=== PATIENT | male | born 1980 | race Caucasian/White ===

== ENCOUNTER 2019-07-22 23:18 | Inpatient (IN) | payer MEDICAID ==
[~2019-07-22] VITALS: Ht 182.9 cm; Wt 81.5 kg
[2019-07-23] VITALS (19 sets, daily range): BP systolic 89–128; BP diastolic 37–83
--- NOTE | 2019-07-23 00:03 | NUR ---
heparin [place]p running at 900units/hr [place] [facility] [place] tobias
[2019-07-23 00:27] LABS: LYMPHOCYTES # (AUTO) 0.5 X10'3 (1.1-4.8); LYMPHOCYTES % (AUTO) 4.2 % (21-51); RED BLOOD COUNT 4.43 X10'6 (4.70-6.10); RED CELL DISTRIBUTION WIDTH 12.9 % (11.5-14.5); WHITE BLOOD COUNT 11.5 X10'3 (4.5-11.0)
[2019-07-23 00:28] LABS: BASOPHILS % (AUTO) 0.4 % (0-1); EOSINOPHILS % (AUTO) 0.1 % (0-6); HEMATOCRIT 40.8 % (42.0-52.0); HEMOGLOBIN 13.4 g/dl (14.0-17.9); MEAN CORPUSCULAR HEMOGLOBIN 30.3 PG (27.0-31.0); MEAN CORPUSCULAR HGB CONC 32.9 g/dL (33.0-36.5); MEAN CORPUSCULAR VOLUME 92.1 FL (78-98); MEAN PLATELET VOLUME 9.7 FL (7.4-10.4); MONOCYTES # (AUTO) 1.4 X10'3 (0-0.9); MONOCYTES % (AUTO) 12.5 % (2-12); NEUTROPHILS # (AUTO) 9.5 X10'3 (1.8-7.7); NEUTROPHILS % (AUTO) 82.8 % (42-75); PLATELET COUNT 65 X10'3 (140-440)
[2019-07-23 00:42] LABS: PARTIAL THROMBOPLASTIN TIME 55 SECONDS (22-32)
[2019-07-23 00:45] LABS: NEUTROPHILS % (MANUAL) 73 % (42-75); TOTAL CELLS COUNTED 100
[2019-07-23 00:46] LABS: BANDS% (MANUAL) 15 % (0-10); LYMPHOCYTES % (MANUAL) 3 % (21-51); MONOCYTES % (MANUAL) 9 % (2-12); PLATELET ESTIMATE DECREASED
[2019-07-23 00:48] LABS: ALANINE AMINOTRANSFERASE 78 U/L (12-78); ALBUMIN 1.8 G/DL (3.4-5.0); ALBUMIN/GLOBULIN RATIO 0.5 (1.1-1.5); ALKALINE PHOSPHATASE 43 IU/L (46-116); ANION GAP 13 (8-16); ASPARTATE AMINO TRANSFERASE 176 U/L (10-37); BILIRUBIN,TOTAL 0.3 MG/DL (0.1-1.0); BLOOD UREA NITROGEN 49 MG/DL (7-18); BUN/CREATININE RATIO 31.8 (5.4-32.0); CHLORIDE 106 MMOL/L (99-107); CREATININE 1.54 MG/DL (0.60-1.10); GLUCOSE 118 MG/DL (70-104); POTASSIUM 3.2 MMOL/L (3.5-5.1); SODIUM 137 MMOL/L (135-145); TOTAL CARBON DIOXIDE 18.2 MMOL/L (24-32); TOTAL PROTEIN 5.3 G/DL (6.4-8.2); eGFR 51 ML/MIN
[2019-07-23 00:51] LABS: CREATINE KINASE 1391 U/L (39-308)
--- NOTE | 2019-07-23 01:00 | NUR ---
bedside x-ray completed.
--- NOTE | 2019-07-23 01:49 | NUR ---
no change in pts mentation. He is awaiting eval by steward/stewardess at this time.
--- NOTE | 2019-07-23 02:06 | NUR ---
PA at bedside for eval/admission - pt is able to open eyes and follow some commands. He mostly nods head yes or no.
[2019-07-23] MEDS ORDERED: NO HOME MEDS (02:15)
--- NOTE | 2019-07-23 02:30 | NUR ---
PT OK TO HAVE ICE CHIPS PER ANIKA ODONNELL - NO DIFFICULTY SWALLOWING
[2019-07-23] MEDS ORDERED: heparin 25,000 UNIT/250ml bag 250 ML IV SCH (02:59)
[2019-07-23] MEDS ORDERED: magnesium Cl slow-release 64mg tablet PO PRN (03:00)
[2019-07-23] MEDS ORDERED: acetaminophen 650mg rectal suppository RC PRN (03:00)
[2019-07-23] MEDS ORDERED: magnesium 2GM in 50ml NS 50 ML IV PRN (03:00)
[2019-07-23] MEDS ORDERED: acetaminophen 325mg tablet PO PRN ×2 (03:00)
[2019-07-23] MEDS ORDERED: ondansetron/PF 4mg/2ml inj IV PRN (03:00)
[2019-07-23] MEDS ORDERED: heparin 10,000 units/1 ML INJ IV PRN (03:00)
[2019-07-23] MEDS ORDERED: potassium Cl 20 mEq SR tablet PO PRN (03:00)
[2019-07-23] MEDS ORDERED: aztreonam inj. 2,000 MG in dextrose 5%-water 100 ML IV SCH (03:21)
--- NOTE | 2019-07-23 03:29 | NUR ---
PT RESTING COMFORTABLY. WILL CONTINUE TO MONITOR. LIGHTS DIMMED.
--- NOTE | 2019-07-23 03:38 | NUR ---
ok to use PICC per MD Correia
[2019-07-23 03:41] LABS: HEMOGLOBIN A1C 5.4 % (4.5-6.2)
[2019-07-23 03:49] LABS: MAGNESIUM 2.5 MG/DL (1.5-2.4); PHOSPHORUS 3.5 MG/DL (2.3-4.5)
[2019-07-23] MEDS: sodium bicarbonate inj. 75 ML in dextrose 5% water 500ml 500 ML IV SCH ×4 (03:50→20:16)
--- NOTE | 2019-07-23 04:06 | NUR ---
Report from GWENDOLYN Yeung . I had the opportunity to ask questions. [facility].
--- NOTE | 2019-07-23 04:38 | NUR ---
Pt arrived from ER via gurney. Awake & drowsy.O2 @ 2L NC . PICC line to left upper arm.Heparin infusion at 900units. Vancomycin infusing at this time. Valiente cath with clear yellow urine.Pt placed on customer resolution specialist.
[2019-07-23 04:52] LABS: ALANINE AMINOTRANSFERASE 78 U/L (12-78); ALBUMIN 1.8 G/DL (3.4-5.0); ALBUMIN/GLOBULIN RATIO 0.5 (1.1-1.5); ALKALINE PHOSPHATASE 47 IU/L (46-116); ANION GAP 9 (8-16); ASPARTATE AMINO TRANSFERASE 162 U/L (10-37); BILIRUBIN,TOTAL 0.4 MG/DL (0.1-1.0); BLOOD UREA NITROGEN 47 MG/DL (7-18); BUN/CREATININE RATIO 36.2 (5.4-32.0); CALCIUM 7.2 MG/DL (8.5-10.1); CHLORIDE 107 MMOL/L (99-107); GLUCOSE 121 MG/DL (70-104); POTASSIUM 3.7 MMOL/L (3.5-5.1); SODIUM 137 MMOL/L (135-145); TOTAL CARBON DIOXIDE 21.1 MMOL/L (24-32); TOTAL PROTEIN 5.5 G/DL (6.4-8.2); eGFR 62 ML/MIN
[2019-07-23] MEDS: aztreonam inj. 2,000 MG in normal saline 100ml IV soln 100 ML IV SCH ×2 (05:02→11:20)
--- NOTE | 2019-07-23 05:32 | NUR ---
[id number]: Patient arrived transferred from [facility] to bed via slider board. Patient oriented x1 to person only. Patient groggy and short to answer questions, at times just nods his head. 2 RN skin assessment done, bed bath completed. Patient unable to answer questions for admission assessment. Pupils 2mm PERRL. Lung sounds clear and equal bilaterally. Bowel sounds present. Peripheral pulses intact x4. Patient is able to move all extremities. telemetry monitor showing sinus tachycardia. Oxygen via nasal cannula at 2 lpm. Valiente catheter in place with urine output. SCD's in place. PICC line to right upper arm. PIV's to left arm 18 ga. Patient with Sodium Bicarb D5W infusing at 75ml/hr. Heparin drip at 900 u/hr. Vancomycin infusing per ordered rate.
--- NOTE | 2019-07-23 06:24 | NUR ---
Problems reprioritized. Patient report given, questions answered & plan of care reviewed with GWENDOLYN Ontiveros.
[2019-07-23] MEDS ORDERED: pantoprazole 40mg Tablet.DR PO SCH (07:30)
[2019-07-23] MEDS: docusate sod 100mg capsule PO SCH ×2 (07:57→20:00)
[2019-07-23] MEDS: aspirin 81mg tab.chew PO SCH (07:57)
[2019-07-23] MEDS ORDERED: carVEDilol 3.125mg tablet PO SCH (08:35)
[2019-07-23 09:28] LABS: CHOLESTEROL 77 MG/DL (0-200)
[2019-07-23 09:29] LABS: HDL CHOLESTEROL 7 MG/DL (35-60); LDL CHOLESTEROL 27 MG/DL (50-100); TRIGLYCERIDES 156 MG/DL (20-135)
--- NOTE | 2019-07-23 12:29 | NUR ---
Malnutrition consult: Patient presents from [facility] with ALOC, acute renal failure, sepsis, acute OH. Per MD note patient's OH meth associated. No prior weight history. Current BMI is appropriate. Pt has Bilateral generalized non pitting 1+ edema. Mild muscle weakness. Speech is slurred. PO documentation is pending. A/O x 3. Will continue to follow and monitor patient for complete assessment of malnutrition pending PO intake and patient interview. Addendum: 07/23/19 at [address] Amended: Links added.
[2019-07-23] MEDS ORDERED: normal saline 1000ml 1,000 ML IV ONE (12:30)
[2019-07-23] MEDS ORDERED: acetaminophen 325mg tablet PO ONE (12:40)
[2019-07-23 14:07] LABS: CLARITY,URINE CLOUDY (Clear); COLOR,URINE YELLOW (Yellow); GLUCOSE, URINE NEGATIVE (Neg); KETONES,URINE NEGATIVE (Neg); LEUKOCYTE ESTERASE ,URINE NEGATIVE (Neg); NITRITES, URINE NEGATIVE (Neg); OCCULT BLOOD,URINE LARGE (Neg); PH,URINE 5.5 (4.8-8.0); PROTEIN,URINE 30 mg/dl (Neg)
[2019-07-23 14:08] LABS: UA COLLECTION TYPE FOLEY CATH
[2019-07-23] MEDS: ceFAZolin 1GM/D5W- ADD-VANTAGE 50 ML IV SCH ×2 (14:14→22:04)
[2019-07-23 14:19] LABS: BACTERIA,URINE FEW /HPF (Neg); SQUAMOUS EPITHELIAL CELL,UR NONE SEEN /LPF (FEW)
[2019-07-23 14:21] LABS: AMORPHOUS URATES 1+; HYALINE CASTS 0-3 /LPF (NEGATIVE); WBC CLUMPS,URINE FEW /HPF (NEGATIVE)
[2019-07-23] MEDS ORDERED: LIDOcaine 1% (10mg/ml)w/preservative injection 20ml MDV ONE (16:56)
--- NOTE | 2019-07-23 18:25 | NUR ---
Patient in room CICU 2011. I have received report from GWENDOLYN Ontiveros and had the opportunity to ask questions and assume patient care.
--- NOTE | 2019-07-23 18:34 | NUR ---
Pt. troponins increased, had change in mental status (confused and not following commands) as of 1639, prior to grinding and polishing laborer, Dr. Renee notified, no further orders input, no further labs recommended. Judy Harris paged per pt.'s increased 12 hour troponin. Call not returned. Per Dr. Durán, no cardiac surgery for pt. until the pt's infection resolves.
--- NOTE | 2019-07-23 18:54 | NUR ---
Privacy Password set up by daughter Cisco per repeat visitors reporting to be relatives she does not know. Password documented in charts.
[2019-07-23] MEDS: lactobacillus rhamnosus 10,000 MMU CELLS/CAPSULE PO SCH (20:00)
[2019-07-23] MEDS: vancomycin/NS 1 GM ADD-VANTAGE 250 ML IV SCH (20:09)
[2019-07-24] VITALS (25 sets, daily range): BP systolic 81–136; BP diastolic 38–106
--- NOTE | 2019-07-24 00:22 | NUR ---
Spoke with China Whitlock NP RE: patients BP trending down, urine output decreased. HR 130's, RR 33. Patients mucous membranes are dry. After 250 ml fluid challenge. Order for 500 ml fluid bolus.
[2019-07-24] MEDS ORDERED: normal saline 500ml IV soln 500 ML IV ONE ×2 (00:30→02:00)
--- NOTE | 2019-07-24 01:50 | NUR ---
Spoke with Jennifer Whitlock NP re: Patients low MAP of 60 and 57. Order for 500ml normal saline fluid bolus.
[2019-07-24 02:51] LABS: BASOPHILS % (AUTO) 0.2 % (0-1); EOSINOPHILS % (AUTO) 0.1 % (0-6); HEMATOCRIT 34.7 % (42.0-52.0); HEMOGLOBIN 11.8 g/dl (14.0-17.9); LYMPHOCYTES # (AUTO) 0.3 X10'3 (1.1-4.8); LYMPHOCYTES % (AUTO) 4.1 % (21-51); MEAN CORPUSCULAR HEMOGLOBIN 31.2 PG (27.0-31.0); MEAN CORPUSCULAR VOLUME 91.7 FL (78-98); MEAN PLATELET VOLUME 9.9 FL (7.4-10.4); MONOCYTES # (AUTO) 0.9 X10'3 (0-0.9); MONOCYTES % (AUTO) 10.8 % (2-12); NEUTROPHILS # (AUTO) 6.9 X10'3 (1.8-7.7); NEUTROPHILS % (AUTO) 84.8 % (42-75); RED BLOOD COUNT 3.78 X10'6 (4.70-6.10); RED CELL DISTRIBUTION WIDTH 12.9 % (11.5-14.5); WHITE BLOOD COUNT 8.2 X10'3 (4.5-11.0)
[2019-07-24 02:58] LABS: PLATELET COUNT 46 X10'3 (140-440)
--- NOTE | 2019-07-24 03:00 | NUR ---
Spoke with Jennifer Whitlock NP Re: critical Platelet count 46. Orders for: Type and Screen, Repeat Hemogram at 0800.
[2019-07-24 03:08] LABS: ALANINE AMINOTRANSFERASE 56 U/L (12-78); ALBUMIN 1.4 G/DL (3.4-5.0); ALBUMIN/GLOBULIN RATIO 0.4 (1.1-1.5); ALKALINE PHOSPHATASE 44 IU/L (46-116); ANION GAP 8 (8-16); ASPARTATE AMINO TRANSFERASE 111 U/L (10-37); BILIRUBIN,TOTAL 0.4 MG/DL (0.1-1.0); BLOOD UREA NITROGEN 38 MG/DL (7-18); BUN/CREATININE RATIO 27.9 (5.4-32.0); CHLORIDE 108 MMOL/L (99-107); CREATININE 1.36 MG/DL (0.60-1.10); GLUCOSE 116 MG/DL (70-104); MAGNESIUM 2.4 MG/DL (1.5-2.4); PHOSPHORUS 1.3 MG/DL (2.3-4.5); SODIUM 140 MMOL/L (135-145); TOTAL CARBON DIOXIDE 23.7 MMOL/L (24-32); TOTAL PROTEIN 4.7 G/DL (6.4-8.2); eGFR 59 ML/MIN
[2019-07-24 03:17] LABS: PARTIAL THROMBOPLASTIN TIME 35 SECONDS (22-32)
[2019-07-24] MEDS: potassium Cl 20 mEq SR tablet PO PRN ×2 (04:00→09:01)
[2019-07-24] MEDS: sodium bicarbonate inj. 75 ML in dextrose 5% water 500ml 500 ML IV SCH (04:05)
[2019-07-24] MEDS: ceFAZolin 1GM/D5W- ADD-VANTAGE 50 ML IV SCH ×2 (04:58→13:00)
--- NOTE | 2019-07-24 05:00 | NUR ---
[id number]: Spoke with China Whitlock NP re: patients continued low BP. Orders to place patient on CVP monitoring to get a baseline for the patient. Per China Whitlock NP CVP can be disconnected after baseline is obtained if needed. CVP is 10-12. No new orders at this time.
--- NOTE | 2019-07-24 06:15 | NUR ---
Patient in room CICU 2011. I have received report from Heike SNOW and had the opportunity to ask questions and assume patient care.
--- NOTE | 2019-07-24 06:34 | NUR ---
Problems reprioritized. Patient report given, questions answered & plan of care reviewed with GWENDOLYN Michelle.
[2019-07-24] MEDS ORDERED: albumin (Human) 5% 250ml 250 ML IV STA (07:17)
[2019-07-24] MEDS ORDERED: VANCOMYCIN LEVEL IV ONE (07:30)
[2019-07-24] MEDS: lactobacillus rhamnosus 10,000 MMU CELLS/CAPSULE PO SCH ×2 (07:57→20:24)
[2019-07-24] MEDS: docusate sod 100mg capsule PO SCH ×2 (07:57→20:24)
[2019-07-24] MEDS: aspirin 81mg tab.chew PO SCH (07:58)
[2019-07-24] MEDS ORDERED: mupirocin 2% ointment 22GM NS SCH (08:00)
[2019-07-24] MEDS ORDERED: pantoprazole 40 MG vial IV SCH (08:00)
[2019-07-24] MEDS ORDERED: cefazolin/dext.iso 2gm/100ml 100 ML IV ONE ×2 (08:05→11:00)
[2019-07-24 08:13] LABS: HEMATOCRIT 31.7 % (42.0-52.0); HEMOGLOBIN 10.7 g/dl (14.0-17.9); MEAN CORPUSCULAR HEMOGLOBIN 31.3 PG (27.0-31.0); MEAN CORPUSCULAR HGB CONC 33.8 g/dL (33.0-36.5); MEAN CORPUSCULAR VOLUME 92.5 FL (78-98); MEAN PLATELET VOLUME 10.4 FL (7.4-10.4); RED BLOOD COUNT 3.43 X10'6 (4.70-6.10); WHITE BLOOD COUNT 7.5 X10'3 (4.5-11.0)
[2019-07-24] MEDS: vancomycin/NS 1 GM ADD-VANTAGE 250 ML IV SCH (08:14)
[2019-07-24 08:37] LABS: PLATELET COUNT 37 X10'3 (140-440)
[2019-07-24] MEDS ORDERED: potassium Cl 20mEq/100mL bag 100 ML IV PRN (08:45)
[2019-07-24] MEDS: mupirocin 2% nasal ointment 1gm UD NS SCH ×2 (09:01→20:24)
--- NOTE | 2019-07-24 10:58 | NUR ---
Called daughter to inform patient was going to surgery for pericardial window. She requested we call her when he returns from surgery for update.
[2019-07-24] MEDS ORDERED: gabapentin 400mg capsule PO ONE (11:00)
[2019-07-24] MEDS ORDERED: cefazolin/dext.iso 2gm/50ml 50 ML IV ONE (11:00)
--- NOTE | 2019-07-24 11:10 | NUR ---
Patient leaving for CVOR at this time.
[2019-07-24] MEDS ORDERED: BUPIVAcaine/PF 2.5 mg/ml (0.25%) 30ml vial ONE (11:27)
[2019-07-24] MEDS ORDERED: LIDOcaine 1% 30ml preserv. free vial ONE (11:27)
[2019-07-24] MEDS ORDERED: ceFAZolin 1000mg inj ONE (11:35)
[2019-07-24] MEDS ORDERED: NORMAL SALINE IV ONE (11:35)
[2019-07-24] MEDS ORDERED: ketamine 50mg/5ml syringe ONE (11:35)
[2019-07-24] MEDS ORDERED: DESMOPRESSIN IV ONE (11:35)
[2019-07-24] MEDS: normal saline 1000ml 1,000 ML IV SCH (11:40)
[2019-07-24 11:42] LABS: HIV ANTIBODY 1&2 RAPID NON-REACTIVE (Neg)
[2019-07-24] MEDS ORDERED: fentaNYL/PF 50MCG/1 ML 2ML syringe ONE ×2 (11:42→11:59)
[2019-07-24] MEDS ORDERED: HYDROcodone/acetaminophen 10/325mg tab PO PRN ×2 (12:35)
[2019-07-24] MEDS ORDERED: morphine 4 MG/ML inj SYRINge IV PRN ×2 (12:35)
--- NOTE | 2019-07-24 13:15 | NUR ---
Arrived back from OR at this time.
[2019-07-24 13:48] LABS: BASOPHILS % (AUTO) 0.1 % (0-1); EOSINOPHILS % (AUTO) 0.2 % (0-6); HEMATOCRIT 34.6 % (42.0-52.0); HEMOGLOBIN 11.7 g/dl (14.0-17.9); LYMPHOCYTES # (AUTO) 0.4 X10'3 (1.1-4.8); LYMPHOCYTES % (AUTO) 4.3 % (21-51); MEAN CORPUSCULAR HEMOGLOBIN 31.2 PG (27.0-31.0); MEAN CORPUSCULAR HGB CONC 33.8 g/dL (33.0-36.5); MEAN CORPUSCULAR VOLUME 92.3 FL (78-98); MEAN PLATELET VOLUME 10.4 FL (7.4-10.4); MONOCYTES # (AUTO) 1.1 X10'3 (0-0.9); MONOCYTES % (AUTO) 12.1 % (2-12); NEUTROPHILS # (AUTO) 7.7 X10'3 (1.8-7.7); NEUTROPHILS % (AUTO) 83.3 % (42-75); PLATELET COUNT 66 X10'3 (140-440); RED BLOOD COUNT 3.75 X10'6 (4.70-6.10); RED CELL DISTRIBUTION WIDTH 13.5 % (11.5-14.5); WHITE BLOOD COUNT 9.3 X10'3 (4.5-11.0)
[2019-07-24] MEDS ORDERED: NORepinephrine 8mg/ 250ml NS 250 ML IV PRN (13:55)
[2019-07-24] MEDS ORDERED: NORepinephrine 8mg/ 250ml NS 250 ML IV ONE (14:00)
[2019-07-24 14:01] LABS: ALBUMIN 1.6 G/DL (3.4-5.0); ANION GAP 5 (8-16); BLOOD UREA NITROGEN 33 MG/DL (7-18); BUN/CREATININE RATIO 26.6 (5.4-32.0); CALCIUM 7.1 MG/DL (8.5-10.1); CHLORIDE 110 MMOL/L (99-107); CREATININE 1.24 MG/DL (0.60-1.10); GLUCOSE 126 MG/DL (70-104); POTASSIUM 3.8 MMOL/L (3.5-5.1); SODIUM 141 MMOL/L (135-145); TOTAL CARBON DIOXIDE 26.1 MMOL/L (24-32); eGFR 66 ML/MIN
--- NOTE | 2019-07-24 15:20 | NUR ---
Received call from lab re: gram stains from pericardial fluid. Noted mod gram + cocci in clusters.
[2019-07-24] MEDS: cefazolin/dext.iso 2gm/100ml 100 ML IV SCH (15:23)
--- NOTE | 2019-07-24 15:47 | NUR ---
Made Dr. Renee aware of +gram cocci in cluster from pericardial fluid.
--- NOTE | 2019-07-24 16:46 | NUR ---
Noted patient HR elevated into 130's and was shivering, noted sl increase in temp, currently 38.7, SPO2 93%. IVF's running, Levophed running. Called Dr. Renee for ABG orders. Notified RT for order. Waiting on results.
[2019-07-24 17:05] LABS: ABG BASE EXCESS -0.9 mmol/L (-2.0-3.0); ABG HCO3 19.9 mmol/L (22.0-26.0); ABG OXYGEN SATURATION 91.7 % (95-98); ABG PCO2 (T) 25.9 mmHg (35.0-45.0); ABG PO2 (T) 61.8 mmHg (83-108); FCOHb 0.5 % (0.5-1.5); FMetHb 0.2 % (0.3-1.12); FO2Hb 91.1 % (94-100); TOTAL HEMOGLOBIN 13.6 G/dl (14.0-17.9)
--- NOTE | 2019-07-24 18:00 | NUR ---
Cooling blanket placed under patient at this time, temp 39.0. bladder.
--- NOTE | 2019-07-24 18:20 | NUR ---
Problems reprioritized. Patient report given, questions answered & plan of care reviewed with Shonna SNOW.
--- NOTE | 2019-07-24 18:30 | NUR ---
Patient in room CICU 2011. I have received report from GWENDOLYN Michelle and had the opportunity to ask questions and assume patient care. Patient is responsive to painful stimuli at first then responds to verbal. Will open eyes, moves all extremities, but is weak. Patient with Chest tubes x2 patent no air leak. Dressings are clean, dry and intact. Dressing to surgical wound from paricardial window clean, dry and intact. Valiente Temp catheter in place. Patient is currently has cooling blanket under him with ice packs to groin and axilla for treatment of an elevated temperature not responding to Tylenol. Normal saline infusing at a rate of 100ml/hr. Levophed infusing at 10mcg/min. Will continue to monitor.
--- NOTE | 2019-07-24 19:00 | NUR ---
Patients daughter Serenity to visit patient. She is the spokes person for the family. She relates to RN that she has not spoken to her father since she was 14 "because of his poor choices". when she was called that he was in the hospital she re entered his life. While visiting patient awoke and was able to speak some words to his daughter. During her visit a phone call from a "cousin" was received. She spoke with the person and told them that they could call her directly for information. After than she requested that his password be changed to [id number]. Only family members on the list could be given information.
[2019-07-24] MEDS ORDERED: VANCOmycin 1250MG/NS 250ml Bag 250 ML IV SCH (20:00)
[2019-07-24] MEDS ORDERED: naloxone 0.4 mg/ml inj ONE (21:27)
[2019-07-24] MEDS ORDERED: naloxone 0.4 mg/ml inj IV ONE (21:30)
--- NOTE | 2019-07-24 21:33 | NUR ---
Stroke alert paged. Patient unable to move left upper/ lower extremities in response to pain. Left side facial droop noted. Patient with increased labored respirations grunting. Jennifer Whitlock SEEING EYE DOG TRAINER at bedside, battery charger Kim also at bedside. Airway secretions suctioned. Blood glucose 90. Patient's eyes are wide open, not tracking or blinking. Patient unable to answer questions verbally.
[2019-07-24 21:55] LABS: ABG BASE EXCESS -3.4 mmol/L (-2.0-3.0); ABG HCO3 18.8 mmol/L (22.0-26.0); ABG OXYGEN SATURATION 95.1 % (95-98); ABG PCO2 (T) 25.5 mmHg (35.0-45.0); ABG PO2 (T) 66.8 mmHg (83-108); FCOHb 0.5 % (0.5-1.5); FLOW 2 L/min; FMetHb 0.1 % (0.3-1.12); FO2Hb 94.5 % (94-100); PATIENT TEMPERATURE 35.9; RESPIRATORY RATE (OBSERVED) 26 b/min; TOTAL HEMOGLOBIN 14.6 G/dl (14.0-17.9)
[2019-07-24] MEDS ORDERED: midazolam 100mg in NS 100ml 100 ML IV PRN (22:05)
[2019-07-24] MEDS ORDERED: albuterol 2.5 MG/3 ML nebule NEB PRN (22:05)
[2019-07-24] MEDS ORDERED: FENTANYL-0.9 % NACL/PF 100 ML IV PRN (22:05)
--- NOTE | 2019-07-24 22:07 | NUR ---
Patient emergently intubated for unable to protect airway. Dr. Ellis at bedside. See medication orders. Chest X-Ray obtained to confirm placement. OG tube placed. Patient placed on ventilator .
[2019-07-24 22:10] LABS: BASOPHILS % (AUTO) 0.3 % (0-1); EOSINOPHILS # (AUTO) 0.1 X10'3 (0-0.9); EOSINOPHILS % (AUTO) 0.4 % (0-6); HEMOGLOBIN 13.8 g/dl (14.0-17.9); LYMPHOCYTES # (AUTO) 1.1 X10'3 (1.1-4.8); LYMPHOCYTES % (AUTO) 6.6 % (21-51); MEAN CORPUSCULAR HEMOGLOBIN 30.3 PG (27.0-31.0); MEAN CORPUSCULAR HGB CONC 32.8 g/dL (33.0-36.5); MEAN CORPUSCULAR VOLUME 92.2 FL (78-98); MONOCYTES # (AUTO) 1.8 X10'3 (0-0.9); MONOCYTES % (AUTO) 10.8 % (2-12); NEUTROPHILS # (AUTO) 13.3 X10'3 (1.8-7.7); NEUTROPHILS % (AUTO) 81.9 % (42-75); PLATELET COUNT 55 X10'3 (140-440); RED BLOOD COUNT 4.55 X10'6 (4.70-6.10); RED CELL DISTRIBUTION WIDTH 13.3 % (11.5-14.5); WHITE BLOOD COUNT 16.3 X10'3 (4.5-11.0)
[2019-07-24] MEDS ORDERED: normal saline 1000ml 1,000 ML IVB ONE (22:12)
[2019-07-24] MEDS ORDERED: iohexol 350MG/ML 100ml bottle IV ONE (22:15)
[2019-07-24 22:22] LABS: AMMONIA < 10 UMOL/L (11-32)
[2019-07-24 22:25] LABS: ALANINE AMINOTRANSFERASE 55 U/L (12-78); ALBUMIN 1.7 G/DL (3.4-5.0); ALBUMIN/GLOBULIN RATIO 0.5 (1.1-1.5); ALKALINE PHOSPHATASE 63 IU/L (46-116); ANION GAP 7 (8-16); ASPARTATE AMINO TRANSFERASE 121 U/L (10-37); BILIRUBIN,TOTAL 0.5 MG/DL (0.1-1.0); BLOOD UREA NITROGEN 34 MG/DL (7-18); BUN/CREATININE RATIO 27.4 (5.4-32.0); CALCIUM 7.5 MG/DL (8.5-10.1); CHLORIDE 108 MMOL/L (99-107); CREATININE 1.24 MG/DL (0.60-1.10); GLUCOSE 130 MG/DL (70-104); POTASSIUM 3.8 MMOL/L (3.5-5.1); SODIUM 140 MMOL/L (135-145); TOTAL CARBON DIOXIDE 24.8 MMOL/L (24-32); TOTAL PROTEIN 5.3 G/DL (6.4-8.2); eGFR 66 ML/MIN
[2019-07-24] MEDS ORDERED: etomidate 2mg/ml inj. IV ONE (22:25)
[2019-07-24] MEDS ORDERED: succinylcholine 20mg/ml inj IV ONE (22:25)
[2019-07-24 22:29] LABS: MAGNESIUM 2.5 MG/DL (1.5-2.4); PARTIAL THROMBOPLASTIN TIME 36 SECONDS (22-32); PHOSPHORUS 1.9 MG/DL (2.3-4.5)
[2019-07-24 22:31] LABS: TROPONIN I 8.52 NG/ML (0.0-0.05)
--- NOTE | 2019-07-24 22:50 | NUR ---
Patient to CT accompanied by RT and RN
[2019-07-24] MEDS: ipratropium/albuterol 3ml nebule NEB SCH (23:43)
[2019-07-25] VITALS: BP 108/72
--- NOTE | 2019-07-25 | NUR ---
STROKE ALERT Stroke paged at 2132 for a LKN of 2043. Nurse assessed patient at approximately 2109 and found to have difficulty speaking, initially unable to say any words. Grunting respirations. No motor mvmt noted to left side. I assessed patient at approximately 2149 and found him to have no response to pain on the left arm or leg. Withdraws to pain on the right arm and leg, weakly. 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 For these reasons he is not a TPA candidate. He required intubation emergently prior to CT scan, delaying his imaging time. Orders rec'd for stat non-contrast CT head as well as CTA to r/o any LVO. Patient did attempt to verbalize his name prior to intubation. SOC contacted and on stand by for completion of imaging.
[2019-07-25 00:01] LABS: ABG BASE EXCESS -3.6 mmol/L (-2.0-3.0); ABG HCO3 19.2 mmol/L (22.0-26.0); ABG PCO2 (T) 27.4 mmHg (35.0-45.0); ABG PO2 (T) 225.5 mmHg (83-108); ALLEN'S TEST Positive; FCOHb 0.3 % (0.5-1.5); FMetHb 0.2 % (0.3-1.12); FO2Hb 98.5 % (94-100); MINUTE VOLUME 11 L/min; PATIENT TEMPERATURE 35.9; PEEP 5 cm H2O; RESPIRATORY RATE 18 b/min; RESPIRATORY RATE (OBSERVED) 21 b/min; TIDAL VOLUME 425 mL; TOTAL HEMOGLOBIN 13.3 G/dl (14.0-17.9)
--- NOTE | 2019-07-25 00:33 | NUR ---
Case discussed at length with teleneurology and China Whitlock NP. Neurology recommends that consult be requested from neuro intervention to determine candidacy. Appropriate calls placed to [facility]. Daughter updated. Addendum: 07/25/19 at 0146 by Shavonne Dutton RN Nurse practitioner overseeing patient care in contact with transfer center to attempt transfer to a facility capable of CT perfusion or urgent MRI.
[2019-07-25] MEDS: normal saline 1000ml 1,000 ML IV SCH (00:43)
[2019-07-25 01:00] VITALS: BP 99/66
--- NOTE | 2019-07-25 01:50 | NUR ---
Patient back to CT accompanied by RN and RT
[2019-07-25 02:00] VITALS: BP 95/61
[2019-07-25] MEDS: cefazolin/dext.iso 2gm/100ml 100 ML IV SCH (02:17)
[2019-07-25 03:00] VITALS: BP 87/60
[2019-07-25] MEDS ORDERED: lactulose 20gm/30ml cup PO PRN (03:00)
[2019-07-25] MEDS: ipratropium/albuterol 3ml nebule NEB SCH (03:04)
[2019-07-25 03:21] LABS: ABG BASE EXCESS -2.5 mmol/L (-2.0-3.0); ABG HCO3 19.8 mmol/L (22.0-26.0); ABG OXYGEN SATURATION 98.5 % (95-98); ABG PCO2 (T) 27.2 mmHg (35.0-45.0); ABG PH (T) 7.478 (7.350-7.450); ABG PO2 (T) 116.8 mmHg (83-108); ALLEN'S TEST Positive; FCOHb 0.3 % (0.5-1.5); FMetHb 0.2 % (0.3-1.12); MINUTE VOLUME 12 L/min; PATIENT TEMPERATURE 36.6; PEEP 5 cm H2O; RESPIRATORY RATE 18 b/min; RESPIRATORY RATE (OBSERVED) 26 b/min; TIDAL VOLUME 425 mL; TOTAL HEMOGLOBIN 13.3 G/dl (14.0-17.9)
[2019-07-25 03:45] LABS: BASOPHILS # (AUTO) 0.1 X10'3 (0-0.2); BASOPHILS % (AUTO) 0.4 % (0-1); EOSINOPHILS % (AUTO) 0.1 % (0-6); HEMATOCRIT 38.1 % (42.0-52.0); HEMOGLOBIN 12.7 g/dl (14.0-17.9); LYMPHOCYTES # (AUTO) 0.9 X10'3 (1.1-4.8); LYMPHOCYTES % (AUTO) 6.4 % (21-51); MEAN CORPUSCULAR HEMOGLOBIN 30.5 PG (27.0-31.0); MEAN CORPUSCULAR HGB CONC 33.3 g/dL (33.0-36.5); MEAN CORPUSCULAR VOLUME 91.5 FL (78-98); MEAN PLATELET VOLUME 9.4 FL (7.4-10.4); MONOCYTES # (AUTO) 1.6 X10'3 (0-0.9); MONOCYTES % (AUTO) 11.1 % (2-12); NEUTROPHILS # (AUTO) 11.9 X10'3 (1.8-7.7); RED BLOOD COUNT 4.16 X10'6 (4.70-6.10); RED CELL DISTRIBUTION WIDTH 13.5 % (11.5-14.5); WHITE BLOOD COUNT 14.5 X10'3 (4.5-11.0)
[2019-07-25 03:50] LABS: PLATELET COUNT 38 X10'3 (140-440)
[2019-07-25 03:51] LABS: PARTIAL THROMBOPLASTIN TIME 38 SECONDS (22-32)
[2019-07-25 04:00] VITALS: BP 92/60
--- NOTE | 2019-07-25 04:00 | NUR ---
Patients daughter Julienne made aware of pending transfer to by November ANSELMO Whitlock while discussing patients change in condition earlier in the shift. Attempted to call her back to complete MRI screening form and to alert her of the confirmed transfer to [facility]. She did not answer her phone at this time, a voicemail was left for a return call.
[2019-07-25 04:01] LABS: ALANINE AMINOTRANSFERASE 45 U/L (12-78); ALBUMIN 1.4 G/DL (3.4-5.0); ALBUMIN/GLOBULIN RATIO 0.4 (1.1-1.5); ALKALINE PHOSPHATASE 49 IU/L (46-116); ANION GAP 10 (8-16); ASPARTATE AMINO TRANSFERASE 95 U/L (10-37); BILIRUBIN,TOTAL 0.4 MG/DL (0.1-1.0); BLOOD UREA NITROGEN 34 MG/DL (7-18); BUN/CREATININE RATIO 32.4 (5.4-32.0); CALCIUM 7.1 MG/DL (8.5-10.1); CHLORIDE 110 MMOL/L (99-107); CREATININE 1.05 MG/DL (0.60-1.10); GLUCOSE 126 MG/DL (70-104); MAGNESIUM 2.4 MG/DL (1.5-2.4); PHOSPHORUS 2.3 MG/DL (2.3-4.5); POTASSIUM 3.2 MMOL/L (3.5-5.1); SODIUM 142 MMOL/L (135-145); TOTAL CARBON DIOXIDE 22.2 MMOL/L (24-32); TOTAL PROTEIN 4.7 G/DL (6.4-8.2); eGFR 80 ML/MIN
--- NOTE | 2019-07-25 04:13 | NUR ---
Report called to GWENDOLYN Soto at [facility] ICU.
--- NOTE | 2019-07-25 04:40 | NUR ---
EMS at bedside to transfer patient to [facility]. Report given to GWENDOLYN Sanchez, she will be transporting with the EMS 5Th Grade Teacher. Patient transferred to [facility] without incident. Airway managed by 5Th Grade Teacher. IV drips managed by RN. All belongings sent with patient.
[2019-07-26] MEDS ORDERED: mineral oil/petrolatum ophthal oint EACHEYE SCH (02:00)
[2019-07-26] MEDS ORDERED: VANCOMYCIN LEVEL IV ONE (07:30)
== END 2019-07-25 04:50 | disposition short-term general hospital (02) | DRG 710 ==
LOC: ER 23:19 → CICU 2S 07-23 04:34 → CMPBEDREQ 07-23 04:47
PROVIDERS: ADMIT Internal Medicine Critical Care Medicine; ATTEND Internal Medicine Critical Care Medicine
PROC: 0W9D3ZZ Drainage of Pericardial Cavity, Percutaneous Approach (ICD-10-PCS; 2019-07-23)
PROC: 0W9D00Z Drainage of Pericardial Cavity with Drainage Device, Open Approach (ICD-10-PCS; 2019-07-24)
PROC: B3281ZZ Computerized Tomography (CT Scan) of Bilateral Internal Carotid Arteries using Low Osmolar Contrast (ICD-10-PCS; 2019-07-24)
PROC: B32G1ZZ Computerized Tomography (CT Scan) of Bilateral Vertebral Arteries using Low Osmolar Contrast (ICD-10-PCS; 2019-07-24)
PROC: 0BH17EZ Insertion of Endotracheal Airway into Trachea, Via Natural or Artificial Opening (ICD-10-PCS; 2019-07-24)
PROC: 5A1935Z Respiratory Ventilation, Less than 24 Consecutive Hours (ICD-10-PCS; 2019-07-24)
PROC: 30233R1 Transfusion of Nonautologous Platelets into Peripheral Vein, Percutaneous Approach (ICD-10-PCS; principal; 2019-07-24 11:12)
DX: A41.89 Other specified sepsis (principal); I31.4 Cardiac tamponade; I21.3 ST elevation (STEMI) myocardial infarction of unspecified site; I33.0 Acute and subacute infective endocarditis; I63.511 Cerebral infarction due to unspecified occlusion or stenosis of right middle cerebral artery; E87.2 Acidosis; D69.59 Other secondary thrombocytopenia; J96.00 Acute respiratory failure, unspecified whether with hypoxia or hypercapnia; R65.21 Severe sepsis with septic shock; N17.9 Acute kidney failure, unspecified; M62.82 Rhabdomyolysis; J45.909 Unspecified asthma, uncomplicated; J93.9 Pneumothorax, unspecified; I31.3 Pericardial effusion (noninflammatory); R47.01 Aphasia; B96.89 Other specified bacterial agents as the cause of diseases classified elsewhere; I42.9 Cardiomyopathy, unspecified; J90 Pleural effusion, not elsewhere classified; F15.90 Other stimulant use, unspecified, uncomplicated; F31.9 Bipolar disorder, unspecified; Z79.899 Other long term (current) drug therapy; Z88.1 Allergy status to other antibiotic agents; Z71.51 Drug abuse counseling and surveillance of drug abuser
CPT/HCPCS: 33010; 36415; 36600; 70450; 70496; 71045; 71250; 80048; 80053; 80061; 80202; 81001; 82140; 82550; 82803; 82948; 83036; 83605; 83735; 83880; 84100; 84145; 84484; 85018; 85025; 85027; 85610; 85730; 86703; 86885; 86900; 86901; 86920; 87040; 87070; 87075; 87077; 87081; 87088; 87102; 87186; 93005; 93306; 93308; 94002; 94003; 94640; 94760; 96365; 96368; 99291; A4618; A4620; A6258; A6449; A7000; A7048; C9113; G0378; J0690; J1644; J2001; J2250; J2270; J2310; J2597; J3010; J3370; J3490; J7030; J7040; J7050; J7060; J7120; P9035; P9045; Q9967

== ENCOUNTER 2019-07-25 09:46 | Inpatient (IN) | payer MEDICAID ==
[~2019-07-25] VITALS: Ht 180.3 cm; Wt 87.8 kg
[2019-07-25] VITALS (11 sets, daily range): BP systolic 86–105; BP diastolic 55–68
[~2019-07-25 09:46] MED LIST: NO HOME MEDS
[2019-07-25] MEDS: NORepinephrine 8mg/ 250ml NS 250 ML IV SCH ×2 (12:00→20:59)
--- NOTE | 2019-07-25 12:00 | NUR ---
RECEIVED THIS PATIENT BACK FROM [facility] VIA EMS AND TWO STAFF RNS ACCOMPANIED PATIENT. PATIENT IS ON THE VENTILATOR AT SETTINGS OF 30%FIO2 , PEEP 8, TV 500, AND RR IS 28. SATS ARE RUNNING 100%. PATIENT IS ON LEVOPHED 12MCG TO SUPPORT CURRENT BP OF 86/56 MAP OF 66. I WAS INFORMED IN REPORT THAT NO MEANINGFUL RESPONSES HAVE BEEN WITNESSED BY STAFF AND PATIENT HAS BEEN NON RESPONSIVE TO STIMULI SINCE ADMISSION HERE TO [facility] ALSO. PATIENT APPEARS TO HAVE PIN POINT PUPILS THAT ARE NON REACTIVE AND DR TAYLOR IS AT THE BEDSIDE AWARE OF THIS. WILL CONTINUE TO MONITOR AND ASSESS THE NEEDS OF THE PATIENT
[2019-07-25] MEDS ORDERED: NORepinephrine 8mg/ 250ml NS 250 ML IV ONE (12:14)
[2019-07-25] MEDS ORDERED: FENTANYL-0.9 % NACL/PF 100 ML IV PRN (12:23)
[2019-07-25] MEDS ORDERED: midazolam 100mg in NS 100ml 100 ML IV PRN (12:23)
[2019-07-25] MEDS ORDERED: ipratropium/albuterol 3ml nebule NEB PRN (12:25)
[2019-07-25] MEDS ORDERED: potassium Cl 20 mEq SR tablet PO PRN ×2 (12:25)
[2019-07-25] MEDS ORDERED: potassium CL 10mEq/100ml bag 100 ML IV PRN (12:25)
[2019-07-25] MEDS ORDERED: midazolam 2 mg/2 ml injection IV ONE (12:25)
[2019-07-25] MEDS ORDERED: ondansetron/PF 4mg/2ml inj IV PRN (12:25)
[2019-07-25] MEDS ORDERED: acetaminophen 325mg tablet PO PRN ×2 (12:25)
[2019-07-25] MEDS ORDERED: fentaNYL/PF 50MCG/1 ML 2ML syringe IV PRN (12:25)
[2019-07-25] MEDS: FENTANYL-0.9 % NACL/PF 100 ML IV PRN (13:06)
[2019-07-25] MEDS: normal saline 1000ml 1,000 ML IV SCH (13:06)
[2019-07-25] MEDS: midazolam 100mg in NS 100ml 100 ML IV PRN (13:07)
--- NOTE | 2019-07-25 15:12 | NUR ---
Tube feeding consult. Patient is intubated and sedated. Returned from [facility] for stroke work up per bedside RN. Found to have stroke per MD note. Pt is s/p subxiphoid pericardial window on 07/24. 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 On pressors as well. MAP is above 60. D/w RN that consult was received for tube feedings, unable to enter recommendations myself d/t a tube feeding order already placed along with a consult however discussed that recommendations were made. See recs below. Recommend: 1. Recommend continuous tube feedings using Vital AF at 70 ml/hr will provide 1680 ml, 2016 cals, 126 g protein, and 1361 ml water. 2. Prealbumin q Monday and 3. daily wts 4. water flush 200 q 4 Addendum: 07/25/19 at [address] Amended: Links added.
[2019-07-25 16:16] LABS: ABG BASE EXCESS -2.5 mmol/L (-2.0-3.0); ABG HCO3 19.9 mmol/L (22.0-26.0); ABG OXYGEN SATURATION 97.6 % (95-98); ABG PCO2 (T) 31.2 mmHg (35.0-45.0); ABG PH (T) 7.433 (7.350-7.450); ABG PO2 (T) 111.4 mmHg (83-108); ALLEN'S TEST Positive; FCOHb 0.3 % (0.5-1.5); FLOW 55 L/min; FMetHb 0.2 % (0.3-1.12); FO2Hb 97.1 % (94-100); MINUTE VOLUME 13 L/min; PATIENT TEMPERATURE 39.2; PEEP 8 cm H2O; RESPIRATORY RATE 12 b/min; RESPIRATORY RATE (OBSERVED) 23 b/min; TIDAL VOLUME 500 mL; TOTAL HEMOGLOBIN 13.5 G/dl (14.0-17.9)
[2019-07-25] MEDS: ipratropium/albuterol 3ml nebule NEB SCH ×3 (16:19→22:33)
--- NOTE | 2019-07-25 16:49 | NUR ---
PATIENTS FEVER ADDRESSED WITH TYLENOL PER MD ORDER, PACKED ALL EXTREMITIES WITH ICE AND COOL WASH CLOTH TO THE FOREHEAD
--- NOTE | 2019-07-25 17:29 | NUR ---
FAN PLACED ON PATIENT
--- NOTE | 2019-07-25 18:27 | NUR ---
Problems reprioritized. Patient report given, questions answered & plan of care reviewed with Nigel SNOW.
--- NOTE | 2019-07-25 18:30 | NUR ---
1825..Patient in room CICU 2010. I have received report from Danial SNOW and had the opportunity to ask questions and assume patient care.
[2019-07-25] MEDS: cefazolin/dext.iso 2gm/100ml 100 ML IV SCH (19:30)
[2019-07-25] MEDS: heparin, porcine 5000 units/ml vial SQ SCH (20:00)
[2019-07-25] MEDS: docusate sodium 100mg/10ml UD cup PO SCH (20:00)
[2019-07-25] MEDS: famotidine/PF 10 mg/ml inj IV SCH (20:52)
[2019-07-25] MEDS ORDERED: sennosides/docusate sodium tablet PO SCH (21:00)
[2019-07-26] VITALS (24 sets, daily range): BP systolic 82–110; BP diastolic 54–73
[2019-07-26] MEDS: cefazolin/dext.iso 2gm/100ml 100 ML IV SCH ×3 (00:45→16:09)
--- NOTE | 2019-07-26 01:40 | NUR ---
1999..Assessment as noted, pt completely nonresponsive. Family at bedside.
--- NOTE | 2019-07-26 01:41 | NUR ---
0000..No changes noted.
[2019-07-26] MEDS: ipratropium/albuterol 3ml nebule NEB SCH ×6 (02:33→22:39)
[2019-07-26 03:08] LABS: BASOPHILS % (AUTO) 0.2 % (0-1); EOSINOPHILS # (AUTO) 0.1 X10'3 (0-0.9); EOSINOPHILS % (AUTO) 0.3 % (0-6); HEMATOCRIT 35.1 % (42.0-52.0); HEMOGLOBIN 11.8 g/dl (14.0-17.9); LYMPHOCYTES # (AUTO) 1.2 X10'3 (1.1-4.8); LYMPHOCYTES % (AUTO) 7.2 % (21-51); MEAN CORPUSCULAR HEMOGLOBIN 30.9 PG (27.0-31.0); MEAN CORPUSCULAR HGB CONC 33.7 g/dL (33.0-36.5); MEAN CORPUSCULAR VOLUME 91.8 FL (78-98); MEAN PLATELET VOLUME 10.3 FL (7.4-10.4); MONOCYTES # (AUTO) 1.9 X10'3 (0-0.9); MONOCYTES % (AUTO) 11.5 % (2-12); NEUTROPHILS # (AUTO) 13.2 X10'3 (1.8-7.7); NEUTROPHILS % (AUTO) 80.8 % (42-75); PLATELET COUNT 71 X10'3 (140-440); RED BLOOD COUNT 3.83 X10'6 (4.70-6.10); RED CELL DISTRIBUTION WIDTH 13.6 % (11.5-14.5); WHITE BLOOD COUNT 16.4 X10'3 (4.5-11.0)
[2019-07-26 03:15] LABS: ALANINE AMINOTRANSFERASE 33 U/L (12-78); ALBUMIN 1.3 G/DL (3.4-5.0); ALBUMIN/GLOBULIN RATIO 0.4 (1.1-1.5); ALKALINE PHOSPHATASE 54 IU/L (46-116); ANION GAP 8 (8-16); ASPARTATE AMINO TRANSFERASE 82 U/L (10-37); BILIRUBIN,TOTAL 0.3 MG/DL (0.1-1.0); BLOOD UREA NITROGEN 33 MG/DL (7-18); BUN/CREATININE RATIO 28.9 (5.4-32.0); CALCIUM 7.3 MG/DL (8.5-10.1); CHLORIDE 112 MMOL/L (99-107); CREATININE 1.14 MG/DL (0.60-1.10); GLUCOSE 123 MG/DL (70-104); MAGNESIUM 2.2 MG/DL (1.5-2.4); PHOSPHORUS 3.3 MG/DL (2.3-4.5); POTASSIUM 3.6 MMOL/L (3.5-5.1); SODIUM 144 MMOL/L (135-145); TOTAL CARBON DIOXIDE 23.9 MMOL/L (24-32); TOTAL PROTEIN 4.9 G/DL (6.4-8.2); eGFR 73 ML/MIN
[2019-07-26 03:50] LABS: ABG HCO3 18.9 mmol/L (22.0-26.0); ABG OXYGEN SATURATION 97.8 % (95-98); ABG PCO2 (T) 26.7 mmHg (35.0-45.0); ABG PH (T) 7.472 (7.350-7.450); ABG PO2 (T) 112.4 mmHg (83-108); ALLEN'S TEST Positive; FCOHb 0.3 % (0.5-1.5); FO2Hb 97.5 % (94-100); MINUTE VOLUME 13 L/min; PATIENT TEMPERATURE 38.1; PEEP 8 cm H2O; RESPIRATORY RATE 12 b/min; RESPIRATORY RATE (OBSERVED) 24 b/min; TIDAL VOLUME 500 mL; TOTAL HEMOGLOBIN 12.6 G/dl (14.0-17.9)
[2019-07-26] MEDS: normal saline 1000ml 1,000 ML IV SCH ×3 (04:59→20:00)
[2019-07-26] MEDS: NORepinephrine 8mg/ 250ml NS 250 ML IV SCH (05:00)
--- NOTE | 2019-07-26 05:23 | NUR ---
0400..No changes noted.
--- NOTE | 2019-07-26 06:15 | NUR ---
0615..Problems reprioritized. Patient report given, questions answered & plan of care reviewed with Danial SNOW.
[2019-07-26] MEDS: heparin, porcine 5000 units/ml vial SQ SCH ×2 (08:00→19:55)
[2019-07-26] MEDS: docusate sodium 100mg/10ml UD cup PO SCH (08:44)
[2019-07-26] MEDS: famotidine/PF 10 mg/ml inj IV SCH ×2 (08:44→19:55)
--- NOTE | 2019-07-26 09:00 | NUR ---
no new changes noted, discussed POC during rounds with Dr. Renee, he is in agreement that a family meeting is in order to discuss what the plan is moving forward. Case management will be contacting the family to set up a meeting.
--- NOTE | 2019-07-26 09:00 | NUR ---
turned with wound care at the bedside, assessed skin, no new breakdown noted
--- NOTE | 2019-07-26 10:30 | NUR ---
versed is off per Dr. Renee
[2019-07-26] MEDS ORDERED: acetaminophen 325mg tablet NG PRN (10:46)
[2019-07-26] MEDS ORDERED: POTASSIUM BICARB 20meq eff tab 20 MEQ TABLET.EFF NG PRN (10:49)
--- NOTE | 2019-07-26 13:09 | NUR ---
Tube feeding consult. Patient is intubated and sedated. Returned from [facility] for stroke work up per bedside RN. Found to have stroke per MD note. Pt is s/p subxiphoid pericardial window on 07/24. 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 On pressors as well. MAP is above 60. See recs below.. Recommend: 1. Recommend continuous tube feedings using Vital AF at 70 ml/hr will provide 1680 ml, 2016 cals, 126 g protein, and 1361 ml water. 2. Prealbumin q Monday and 3. daily wts 4. water flush 200 q 4 Addendum: 07/26/19 at [address] Amended: Links added.
[2019-07-26] MEDS: mineral oil/petrolatum ophthal oint EACHEYE SCH ×4 (13:41→19:55)
[2019-07-26] MEDS: acetaminophen 325mg tablet NG PRN (13:41)
--- NOTE | 2019-07-26 13:57 | NUR ---
no changes or improvements, family at the bedside and they are aware of upcoming family meeting.
--- NOTE | 2019-07-26 13:58 | NUR ---
tylenol given to address fever, fan placed and cool washcloth
--- NOTE | 2019-07-26 15:55 | NUR ---
Problems reprioritized. Patient report given, questions answered & plan of care reviewed with Wendy SNOW.
--- NOTE | 2019-07-26 16:30 | NUR ---
Received report from GWENDOLYN Bautista. Upon assessment, pt withdraws all 4 extremities to to pain and has +cough/gag response.
--- NOTE | 2019-07-26 18:32 | NUR ---
Problems reprioritized. Patient report given, questions answered & plan of care reviewed with GWENDOLYN Perez.
[2019-07-26] MEDS: lactobacillus rhamnosus 10,000 MMU CELLS/CAPSULE NG SCH (19:54)
[2019-07-26] MEDS: docusate sodium 100mg/10ml UD cup NG SCH (19:55)
[2019-07-26] MEDS: sennosides/docusate sodium tablet NG SCH (21:00)
[2019-07-27] VITALS (24 sets, daily range): BP systolic 93–117; BP diastolic 65–83
[2019-07-27] MEDS: cefazolin/dext.iso 2gm/100ml 100 ML IV SCH ×3 (00:14→16:12)
[2019-07-27] MEDS: mineral oil/petrolatum ophthal oint EACHEYE SCH ×8 (02:00→20:01)
[2019-07-27] MEDS: NORepinephrine 8mg/ 250ml NS 250 ML IV SCH (02:34)
[2019-07-27] MEDS: ipratropium/albuterol 3ml nebule NEB SCH ×6 (02:34→22:38)
[2019-07-27 03:47] LABS: ALANINE AMINOTRANSFERASE 24 U/L (12-78); ALBUMIN 1.3 G/DL (3.4-5.0); ALBUMIN/GLOBULIN RATIO 0.3 (1.1-1.5); ALKALINE PHOSPHATASE 63 IU/L (46-116); ANION GAP 8 (8-16); ASPARTATE AMINO TRANSFERASE 52 U/L (10-37); BILIRUBIN,TOTAL 0.3 MG/DL (0.1-1.0); BLOOD UREA NITROGEN 27 MG/DL (7-18); CALCIUM 7.2 MG/DL (8.5-10.1); CHLORIDE 115 MMOL/L (99-107); GLUCOSE 119 MG/DL (70-104); MAGNESIUM 2.1 MG/DL (1.5-2.4); POTASSIUM 3.4 MMOL/L (3.5-5.1); SODIUM 146 MMOL/L (135-145); TOTAL CARBON DIOXIDE 23.5 MMOL/L (24-32); TOTAL PROTEIN 5.1 G/DL (6.4-8.2); eGFR > 90 ML/MIN
[2019-07-27 03:50] LABS: BASOPHILS % (AUTO) 0.1 % (0-1); EOSINOPHILS # (AUTO) 0.1 X10'3 (0-0.9); EOSINOPHILS % (AUTO) 0.5 % (0-6); HEMATOCRIT 33.9 % (42.0-52.0); HEMOGLOBIN 11.2 g/dl (14.0-17.9); LYMPHOCYTES # (AUTO) 0.9 X10'3 (1.1-4.8); MEAN CORPUSCULAR HEMOGLOBIN 30.5 PG (27.0-31.0); MEAN CORPUSCULAR HGB CONC 32.9 g/dL (33.0-36.5); MEAN CORPUSCULAR VOLUME 92.5 FL (78-98); MEAN PLATELET VOLUME 9.4 FL (7.4-10.4); MONOCYTES # (AUTO) 1.3 X10'3 (0-0.9); MONOCYTES % (AUTO) 8.6 % (2-12); NEUTROPHILS # (AUTO) 12.9 X10'3 (1.8-7.7); NEUTROPHILS % (AUTO) 84.8 % (42-75); PLATELET COUNT 93 X10'3 (140-440); RED BLOOD COUNT 3.67 X10'6 (4.70-6.10); RED CELL DISTRIBUTION WIDTH 13.7 % (11.5-14.5); WHITE BLOOD COUNT 15.2 X10'3 (4.5-11.0)
[2019-07-27] MEDS: POTASSIUM BICARB 20meq eff tab 20 MEQ TABLET.EFF NG PRN (03:50)
[2019-07-27 04:16] LABS: ABG BASE EXCESS -2.9 mmol/L (-2.0-3.0); ABG HCO3 18.9 mmol/L (22.0-26.0); ABG OXYGEN SATURATION 98.1 % (95-98); ABG PCO2 (T) 25.9 mmHg (35.0-45.0); ABG PH (T) 7.484 (7.350-7.450); ABG PO2 (T) 117.6 mmHg (83-108); ALLEN'S TEST Positive; FCOHb 0.3 % (0.5-1.5); FO2Hb 97.8 % (94-100); MINUTE VOLUME 14 L/min; PATIENT TEMPERATURE 37.8; PEEP 8 cm H2O; RESPIRATORY RATE 12 b/min; RESPIRATORY RATE (OBSERVED) 24 b/min; TIDAL VOLUME 500 mL; TOTAL HEMOGLOBIN 12.1 G/dl (14.0-17.9)
--- NOTE | 2019-07-27 06:34 | NUR ---
Patient in room CICU 2010. I have received report from GWENDOLYN Perez and had the opportunity to ask questions and assume patient care.
[2019-07-27] MEDS: docusate sodium 100mg/10ml UD cup NG SCH ×2 (07:14→20:00)
[2019-07-27] MEDS: lactobacillus rhamnosus 10,000 MMU CELLS/CAPSULE NG SCH ×2 (07:14→20:00)
[2019-07-27] MEDS: famotidine/PF 10 mg/ml inj IV SCH ×2 (07:14→20:00)
[2019-07-27] MEDS: heparin, porcine 5000 units/ml vial SQ SCH ×2 (07:14→20:01)
[2019-07-27] MEDS: FENTANYL-0.9 % NACL/PF 100 ML IV PRN (12:52)
[2019-07-27] MEDS: acetaminophen 325mg tablet NG PRN ×2 (13:08→21:16)
[2019-07-27] MEDS: normal saline 1000ml 1,000 ML IV SCH ×2 (17:27→22:28)
--- NOTE | 2019-07-27 18:42 | NUR ---
Patient in room CICU 2010. I have received report from Wendy SNOW and had the opportunity to ask questions and assume patient care. Patient in bed, intubated and sedated. Patient saturating at 100% on 30% FIO2 on spontaneous mode, and breathing at 14 breaths/min. HR in 120s in sinus tachycardia, BP 102/74 on 3mcg/kg/min of levophed. Patient minimally responsive to painful stimulus, no purposeful eye-opening. Will continue to monitor patient closely.
[2019-07-27] MEDS: sennosides/docusate sodium tablet NG SCH (20:00)
[2019-07-28] VITALS (24 sets, daily range): BP systolic 91–128; BP diastolic 51–89
[2019-07-28] MEDS: cefazolin/dext.iso 2gm/100ml 100 ML IV SCH ×3 (00:27→15:07)
[2019-07-28] MEDS: mineral oil/petrolatum ophthal oint EACHEYE SCH ×4 (02:12→20:07)
[2019-07-28] MEDS: ipratropium/albuterol 3ml nebule NEB SCH ×6 (02:43→22:37)
[2019-07-28 03:23] LABS: BASOPHILS % (AUTO) 0.2 % (0-1); EOSINOPHILS # (AUTO) 0.1 X10'3 (0-0.9); EOSINOPHILS % (AUTO) 0.7 % (0-6); HEMATOCRIT 33.7 % (42.0-52.0); LYMPHOCYTES # (AUTO) 0.8 X10'3 (1.1-4.8); LYMPHOCYTES % (AUTO) 6.3 % (21-51); MEAN CORPUSCULAR HEMOGLOBIN 30.5 PG (27.0-31.0); MEAN CORPUSCULAR HGB CONC 32.8 g/dL (33.0-36.5); MEAN CORPUSCULAR VOLUME 92.9 FL (78-98); MEAN PLATELET VOLUME 9.7 FL (7.4-10.4); MONOCYTES # (AUTO) 0.9 X10'3 (0-0.9); MONOCYTES % (AUTO) 7.2 % (2-12); NEUTROPHILS # (AUTO) 11.1 X10'3 (1.8-7.7); NEUTROPHILS % (AUTO) 85.6 % (42-75); PLATELET COUNT 98 X10'3 (140-440); RED BLOOD COUNT 3.62 X10'6 (4.70-6.10); RED CELL DISTRIBUTION WIDTH 13.8 % (11.5-14.5); WHITE BLOOD COUNT 12.9 X10'3 (4.5-11.0)
[2019-07-28] MEDS: acetaminophen 325mg tablet NG PRN ×2 (03:25→12:30)
[2019-07-28 03:33] LABS: ALANINE AMINOTRANSFERASE 22 U/L (12-78); ALBUMIN 1.3 G/DL (3.4-5.0); ALBUMIN/GLOBULIN RATIO 0.3 (1.1-1.5); ALKALINE PHOSPHATASE 91 IU/L (46-116); ANION GAP 9 (8-16); ASPARTATE AMINO TRANSFERASE 49 U/L (10-37); BILIRUBIN,TOTAL 0.2 MG/DL (0.1-1.0); BLOOD UREA NITROGEN 29 MG/DL (7-18); BUN/CREATININE RATIO 32.2 (5.4-32.0); CALCIUM 7.4 MG/DL (8.5-10.1); CHLORIDE 114 MMOL/L (99-107); GLUCOSE 130 MG/DL (70-104); MAGNESIUM 2.1 MG/DL (1.5-2.4); PHOSPHORUS 2.8 MG/DL (2.3-4.5); POTASSIUM 3.3 MMOL/L (3.5-5.1); SODIUM 147 MMOL/L (135-145); TOTAL CARBON DIOXIDE 23.8 MMOL/L (24-32); TOTAL PROTEIN 5.5 G/DL (6.4-8.2); eGFR > 90 ML/MIN
[2019-07-28 04:10] LABS: ABG BASE EXCESS -0.7 mmol/L (-2.0-3.0); ABG HCO3 20.7 mmol/L (22.0-26.0); ABG OXYGEN SATURATION 97.8 % (95-98); ABG PCO2 (T) 26.4 mmHg (35.0-45.0); ABG PH (T) 7.515 (7.350-7.450); ABG PO2 (T) 110.2 mmHg (83-108); ALLEN'S TEST Positive; FCOHb 0.3 % (0.5-1.5); FO2Hb 97.5 % (94-100); MINUTE VOLUME 12 L/min; PATIENT TEMPERATURE 38.1; PEEP 5 cm H2O; RESPIRATORY RATE 0 b/min; RESPIRATORY RATE (OBSERVED) 18 b/min; TIDAL VOLUME 602 mL; TOTAL HEMOGLOBIN 11.9 G/dl (14.0-17.9)
[2019-07-28] MEDS: POTASSIUM BICARB 20meq eff tab 20 MEQ TABLET.EFF NG PRN ×2 (05:52→15:07)
--- NOTE | 2019-07-28 06:30 | NUR ---
Patient in room CICU 2010. I have received report from metal machinist RN and had the opportunity to ask questions and assume patient care.
--- NOTE | 2019-07-28 06:35 | NUR ---
Problems reprioritized. Patient report given, questions answered & plan of care reviewed with Doris SNOW.
[2019-07-28] MEDS: docusate sodium 100mg/10ml UD cup NG SCH ×2 (08:00→20:00)
--- NOTE | 2019-07-28 08:00 | NUR ---
eyes opening to name, turns head slightly to side of being spoken to, blinks and is tracking nurse from one side of bed to other, frowns with stimulus, and attempts to withdraw from mild noxious stimulus, extremely weak, unable to hold arms up or move
[2019-07-28] MEDS: famotidine/PF 10 mg/ml inj IV SCH ×2 (08:32→20:06)
[2019-07-28] MEDS: lactobacillus rhamnosus 10,000 MMU CELLS/CAPSULE NG SCH ×2 (08:32→20:06)
[2019-07-28] MEDS: heparin, porcine 5000 units/ml vial SQ SCH ×2 (08:32→20:06)
--- NOTE | 2019-07-28 11:58 | NUR ---
Víctor trigger: Víctor 12 w/ pericardial window surgical site. Tolerating OGTF at goal. No BM yet receiving senna. Will continue to monitor. Recommend: 1. Recommend continuous tube feedings using Vital AF at 70 ml/hr will provide 1680 ml, 2016 cals, 126 g protein, and 1361 ml water. 2. Prealbumin q Monday and 3. daily wts 4. water flush 200 q 4 5. Upon extubation; advance diet per MD to heart healthy Addendum: 07/28/19 at [address] Amended: Links added.
[2019-07-28] MEDS: normal saline 1000ml 1,000 ML IV SCH (12:37)
--- NOTE | 2019-07-28 15:30 | NUR ---
daughter at bedside, pt has eyes open spontaneously, following commands, blinks eyes when asked to and weak adding machine servicer noted.
[2019-07-28] MEDS ORDERED: normal saline 1000ml 1,000 ML IV ONE (18:25)
--- NOTE | 2019-07-28 18:25 | NUR ---
report to director of diversity and inclusion nurse, during report, pt HR increased to 150 beats/min, temp increased to 38.9, Dr Renee aware and orders implemented.
[2019-07-28] MEDS ORDERED: acetaminophen 1,000mg/100ml IV 100 ML IV ONE (18:30)
--- NOTE | 2019-07-28 18:30 | NUR ---
Patient in room CICU 2010. I have received report from Doris SNOW and had the opportunity to ask questions and assume patient care. Patient with HR in 140s-150s in sinus tachycardia. MD orders implemented. EKG showing acute STEMI with mild elevations in v5 and v6. Showed report to Taye Bergman NP, stating elevations are related to increase in HR and patient's pericardial effusion. New orders received to draw troponin and to repeat EKG in AM.
[2019-07-28] MEDS: FENTANYL-0.9 % NACL/PF 100 ML IV PRN (18:58)
--- NOTE | 2019-07-28 19:57 | NUR ---
Patient's HR now back to baseline of 130s in sinus tachycardia. Temperature now down to 38.8 from 39.4. Respirations at 16 breaths/min, saturation at 98% on 30% FIO2 on spontaneous mode. Will continue to monitor patient.
[2019-07-28 20:09] LABS: ALBUMIN 1.3 G/DL (3.4-5.0); ANION GAP 8 (8-16); BLOOD UREA NITROGEN 26 MG/DL (7-18); BUN/CREATININE RATIO 30.6 (5.4-32.0); CALCIUM 7.3 MG/DL (8.5-10.1); CHLORIDE 114 MMOL/L (99-107); CREATININE 0.85 MG/DL (0.60-1.10); GLUCOSE 117 MG/DL (70-104); MAGNESIUM 1.8 MG/DL (1.5-2.4); POTASSIUM 3.3 MMOL/L (3.5-5.1); SODIUM 145 MMOL/L (135-145); TOTAL CARBON DIOXIDE 23.1 MMOL/L (24-32); eGFR > 90 ML/MIN
[2019-07-28 20:11] LABS: TROPONIN I 3.82 NG/ML (0.0-0.05)
[2019-07-28] MEDS: sennosides/docusate sodium tablet NG SCH (21:00)
[2019-07-29] VITALS (20 sets, daily range): BP systolic 93–116; BP diastolic 59–89
[2019-07-29] MEDS: POTASSIUM BICARB 20meq eff tab 20 MEQ TABLET.EFF NG PRN ×3 (00:02→08:12)
[2019-07-29] MEDS: cefazolin/dext.iso 2gm/100ml 100 ML IV SCH ×4 (00:03→23:28)
[2019-07-29] MEDS: ipratropium/albuterol 3ml nebule NEB SCH ×6 (02:30→22:33)
[2019-07-29] MEDS: mineral oil/petrolatum ophthal oint EACHEYE SCH ×4 (02:42→19:15)
[2019-07-29 02:50] LABS: BASOPHILS % (AUTO) 0.2 % (0-1); EOSINOPHILS # (AUTO) 0.1 X10'3 (0-0.9); EOSINOPHILS % (AUTO) 0.9 % (0-6); HEMATOCRIT 31.1 % (42.0-52.0); HEMOGLOBIN 10.3 g/dl (14.0-17.9); LYMPHOCYTES # (AUTO) 0.9 X10'3 (1.1-4.8); LYMPHOCYTES % (AUTO) 6.5 % (21-51); MEAN CORPUSCULAR HEMOGLOBIN 30.7 PG (27.0-31.0); MEAN CORPUSCULAR VOLUME 93.1 FL (78-98); MEAN PLATELET VOLUME 9.7 FL (7.4-10.4); MONOCYTES # (AUTO) 0.8 X10'3 (0-0.9); MONOCYTES % (AUTO) 5.6 % (2-12); NEUTROPHILS # (AUTO) 12.2 X10'3 (1.8-7.7); NEUTROPHILS % (AUTO) 86.8 % (42-75); PLATELET COUNT 87 X10'3 (140-440); RED BLOOD COUNT 3.35 X10'6 (4.70-6.10); RED CELL DISTRIBUTION WIDTH 13.7 % (11.5-14.5); WHITE BLOOD COUNT 14.1 X10'3 (4.5-11.0)
[2019-07-29 03:05] LABS: ALANINE AMINOTRANSFERASE 22 U/L (12-78); ALBUMIN 1.2 G/DL (3.4-5.0); ALBUMIN/GLOBULIN RATIO 0.3 (1.1-1.5); ALKALINE PHOSPHATASE 83 IU/L (46-116); ANION GAP 9 (8-16); ASPARTATE AMINO TRANSFERASE 47 U/L (10-37); BILIRUBIN,TOTAL 0.2 MG/DL (0.1-1.0); BLOOD UREA NITROGEN 26 MG/DL (7-18); BUN/CREATININE RATIO 36.1 (5.4-32.0); CALCIUM 7.3 MG/DL (8.5-10.1); CHLORIDE 114 MMOL/L (99-107); CREATININE 0.72 MG/DL (0.60-1.10); GLUCOSE 114 MG/DL (70-104); MAGNESIUM 1.9 MG/DL (1.5-2.4); PHOSPHORUS 3.8 MG/DL (2.3-4.5); POTASSIUM 3.5 MMOL/L (3.5-5.1); PREALBUMIN 8.9 MG/DL (19-36); SODIUM 146 MMOL/L (135-145); TOTAL CARBON DIOXIDE 22.9 MMOL/L (24-32); TOTAL PROTEIN 5.4 G/DL (6.4-8.2); eGFR > 90 ML/MIN
[2019-07-29 03:25] LABS: ABG BASE EXCESS -1.2 mmol/L (-2.0-3.0); ABG HCO3 19.3 mmol/L (22.0-26.0); ABG OXYGEN SATURATION 98.3 % (95-98); ABG PCO2 (T) 22.8 mmHg (35.0-45.0); ABG PO2 (T) 123.5 mmHg (83-108); ALLEN'S TEST Positive; FCOHb 0.3 % (0.5-1.5); FMetHb 0.1 % (0.3-1.12); FO2Hb 97.9 % (94-100); MINUTE VOLUME 11 L/min; PATIENT TEMPERATURE 38.1; PEEP 5 cm H2O; RESPIRATORY RATE 0 b/min; RESPIRATORY RATE (OBSERVED) 18 b/min; TIDAL VOLUME 812 mL; TOTAL HEMOGLOBIN 11.5 G/dl (14.0-17.9)
[2019-07-29] MEDS: acetaminophen 325mg tablet NG PRN ×3 (04:28→19:14)
[2019-07-29 05:01] LABS: TROPONIN I 3.65 NG/ML (0.0-0.05)
--- NOTE | 2019-07-29 06:25 | NUR ---
Problems reprioritized. Patient report given, questions answered & plan of care reviewed with Wendy SNOW.
[2019-07-29] MEDS: heparin, porcine 5000 units/ml vial SQ SCH ×2 (08:00→20:00)
[2019-07-29] MEDS: docusate sodium 100mg/10ml UD cup NG SCH ×2 (08:00→20:00)
[2019-07-29] MEDS: lactobacillus rhamnosus 10,000 MMU CELLS/CAPSULE NG SCH ×2 (08:12→19:14)
[2019-07-29] MEDS: famotidine/PF 10 mg/ml inj IV SCH ×2 (08:13→19:14)
[2019-07-29] MEDS: NORepinephrine 8mg/ 250ml NS 250 ML IV SCH (12:00)
[2019-07-29] MEDS: normal saline 1000ml 1,000 ML IV SCH (15:30)
[2019-07-29] MEDS: sennosides/docusate sodium tablet NG SCH (20:55)
[2019-07-30] VITALS (23 sets, daily range): BP systolic 89–129; BP diastolic 52–95
[2019-07-30] MEDS: mineral oil/petrolatum ophthal oint EACHEYE SCH ×4 (02:00→20:08)
[2019-07-30 02:33] LABS: BASOPHILS # (AUTO) 0.1 X10'3 (0-0.2); BASOPHILS % (AUTO) 0.4 % (0-1); EOSINOPHILS # (AUTO) 0.1 X10'3 (0-0.9); EOSINOPHILS % (AUTO) 0.5 % (0-6); HEMATOCRIT 32.4 % (42.0-52.0); HEMOGLOBIN 10.5 g/dl (14.0-17.9); LYMPHOCYTES # (AUTO) 1.2 X10'3 (1.1-4.8); LYMPHOCYTES % (AUTO) 5.8 % (21-51); MEAN CORPUSCULAR HEMOGLOBIN 30.3 PG (27.0-31.0); MEAN CORPUSCULAR HGB CONC 32.4 g/dL (33.0-36.5); MEAN CORPUSCULAR VOLUME 93.7 FL (78-98); MEAN PLATELET VOLUME 9.3 FL (7.4-10.4); MONOCYTES # (AUTO) 0.7 X10'3 (0-0.9); MONOCYTES % (AUTO) 3.5 % (2-12); NEUTROPHILS # (AUTO) 18.6 X10'3 (1.8-7.7); NEUTROPHILS % (AUTO) 89.8 % (42-75); PLATELET COUNT 116 X10'3 (140-440); RED BLOOD COUNT 3.46 X10'6 (4.70-6.10); RED CELL DISTRIBUTION WIDTH 13.8 % (11.5-14.5); WHITE BLOOD COUNT 20.7 X10'3 (4.5-11.0)
[2019-07-30] MEDS: ipratropium/albuterol 3ml nebule NEB SCH ×6 (02:37→22:33)
[2019-07-30 02:47] LABS: ALANINE AMINOTRANSFERASE 18 U/L (12-78); ALBUMIN 1.2 G/DL (3.4-5.0); ALBUMIN/GLOBULIN RATIO 0.3 (1.1-1.5); ALKALINE PHOSPHATASE 75 IU/L (46-116); ANION GAP 6 (8-16); ASPARTATE AMINO TRANSFERASE 35 U/L (10-37); BILIRUBIN,TOTAL 0.3 MG/DL (0.1-1.0); BLOOD UREA NITROGEN 28 MG/DL (7-18); BUN/CREATININE RATIO 35.4 (5.4-32.0); CALCIUM 7.4 MG/DL (8.5-10.1); CHLORIDE 115 MMOL/L (99-107); CREATININE 0.79 MG/DL (0.60-1.10); GLUCOSE 114 MG/DL (70-104); MAGNESIUM 1.9 MG/DL (1.5-2.4); PHOSPHORUS 3.2 MG/DL (2.3-4.5); POTASSIUM 3.9 MMOL/L (3.5-5.1); SODIUM 146 MMOL/L (135-145); TOTAL CARBON DIOXIDE 24.7 MMOL/L (24-32); TOTAL PROTEIN 5.7 G/DL (6.4-8.2); eGFR > 90 ML/MIN
[2019-07-30] MEDS: acetaminophen 325mg tablet NG PRN ×3 (03:56→19:31)
[2019-07-30] MEDS: FENTANYL-0.9 % NACL/PF 100 ML IV PRN (03:56)
[2019-07-30 04:30] LABS: ABG BASE EXCESS -0.3 mmol/L (-2.0-3.0); ABG HCO3 20.5 mmol/L (22.0-26.0); ABG OXYGEN SATURATION 91.1 % (95-98); ABG PCO2 (T) 24.7 mmHg (35.0-45.0); ABG PH (T) 7.542 (7.350-7.450); ABG PO2 (T) 63.4 mmHg (83-108); ALLEN'S TEST Positive; FCOHb 0.3 % (0.5-1.5); FMetHb 0.1 % (0.3-1.12); FO2Hb 90.7 % (94-100); MINUTE VOLUME 13 L/min; PATIENT TEMPERATURE 38.5; PEEP 5 cm H2O; RESPIRATORY RATE 0 b/min; RESPIRATORY RATE (OBSERVED) 21 b/min; TIDAL VOLUME 541 mL
[2019-07-30] MEDS: normal saline 1000ml 1,000 ML IV SCH ×2 (05:41→20:08)
--- NOTE | 2019-07-30 06:24 | NUR ---
Problems reprioritized. Patient report given, questions answered & plan of care reviewed with Wali SNOW.
--- NOTE | 2019-07-30 06:31 | NUR ---
Patient in room CICU 2010. I have received report from GWENDOLYN Wu and had the opportunity to ask questions and assume patient care.
[2019-07-30] MEDS: docusate sodium 100mg/10ml UD cup NG SCH ×2 (08:00→20:00)
[2019-07-30] MEDS: diatr meglu/diatrizoate 30ml oral sol.-(3 dose) bottle PO SCH ×3 (08:22→15:00)
[2019-07-30] MEDS: cefazolin/dext.iso 2gm/100ml 100 ML IV SCH (08:23)
[2019-07-30] MEDS: famotidine/PF 10 mg/ml inj IV SCH ×2 (08:23→20:07)
[2019-07-30] MEDS: heparin, porcine 5000 units/ml vial SQ SCH ×2 (08:23→20:08)
[2019-07-30] MEDS: lactobacillus rhamnosus 10,000 MMU CELLS/CAPSULE NG SCH ×2 (08:23→20:07)
[2019-07-30 12:15] LABS: ABG BASE EXCESS -1.8 mmol/L (-2.0-3.0); ABG OXYGEN SATURATION 94.4 % (95-98); ABG PCO2 (T) 28.4 mmHg (35.0-45.0); ABG PH (T) 7.474 (7.350-7.450); ABG PO2 (T) 79.5 mmHg (83-108); ALLEN'S TEST Positive; FCOHb 0.3 % (0.5-1.5); FLOW 30 L/min; FMetHb 0.1 % (0.3-1.12); MINUTE VOLUME 20 L/min; PEEP 5 cm H2O; RESPIRATORY RATE 12 b/min; RESPIRATORY RATE (OBSERVED) 44 b/min; TIDAL VOLUME 500 mL; TOTAL HEMOGLOBIN 11.9 G/dl (14.0-17.9)
[2019-07-30] MEDS ORDERED: iohexol 300mg/ml 100ml inj. ONE (15:26)
[2019-07-30] MEDS ORDERED: furosemide 40mg/4ml inj IV STA (15:44)
[2019-07-30] MEDS ORDERED: midazolam 100mg in NS 100ml 100 ML IV PRN (15:55)
[2019-07-30] MEDS ORDERED: piperacillin/tazo 4.5gm/100ml 100 ML IV SCH (16:00)
--- NOTE | 2019-07-30 18:30 | NUR ---
assumed care from Ashlee RN no questions or concerns after report "SBAR." given
--- NOTE | 2019-07-30 18:50 | NUR ---
LEFT BASILIC VEIN IS NON COMPRESSIBLE Addendum: 07/30/19 at 1851 by Rebecca Lerma RN Amended: Links added.
[2019-07-30] MEDS: sennosides/docusate sodium tablet NG SCH (21:00)
--- NOTE | 2019-07-30 22:00 | NUR ---
patient continuing to spike a fever, axillary and groin ice packs administered Tylenol will continue to monitor
--- NOTE | 2019-07-30 23:00 | NUR ---
patients temp is decreasing slowly with cooling measures ice packs,Tylenol
[2019-07-31] VITALS (24 sets, daily range): BP systolic 88–109; BP diastolic 51–75
[2019-07-31] MEDS: normal saline 1000ml 1,000 ML IV SCH ×3 (01:43→12:26)
[2019-07-31] MEDS: mineral oil/petrolatum ophthal oint EACHEYE SCH ×4 (02:00→20:47)
--- NOTE | 2019-07-31 02:00 | NUR ---
patient still febrile, temp starting to climb again administered Tylenol and have axillary ice packs and groin with fan on patient, rr even un labored no observable s/s of acute stress at this time
[2019-07-31] MEDS: ipratropium/albuterol 3ml nebule NEB SCH ×6 (02:40→23:15)
[2019-07-31 02:51] LABS: BASOPHILS % (AUTO) 0.2 % (0-1); EOSINOPHILS # (AUTO) 0.1 X10'3 (0-0.9); EOSINOPHILS % (AUTO) 0.5 % (0-6); HEMATOCRIT 26.4 % (42.0-52.0); HEMOGLOBIN 8.5 g/dl (14.0-17.9); LYMPHOCYTES # (AUTO) 1.3 X10'3 (1.1-4.8); LYMPHOCYTES % (AUTO) 7.9 % (21-51); MEAN CORPUSCULAR HEMOGLOBIN 30.2 PG (27.0-31.0); MEAN CORPUSCULAR HGB CONC 32.2 g/dL (33.0-36.5); MEAN CORPUSCULAR VOLUME 93.6 FL (78-98); MEAN PLATELET VOLUME 9.4 FL (7.4-10.4); MONOCYTES # (AUTO) 0.7 X10'3 (0-0.9); MONOCYTES % (AUTO) 4.2 % (2-12); NEUTROPHILS # (AUTO) 14.5 X10'3 (1.8-7.7); NEUTROPHILS % (AUTO) 87.2 % (42-75); PLATELET COUNT 134 X10'3 (140-440); RED BLOOD COUNT 2.82 X10'6 (4.70-6.10); RED CELL DISTRIBUTION WIDTH 13.6 % (11.5-14.5); WHITE BLOOD COUNT 16.6 X10'3 (4.5-11.0)
[2019-07-31 03:04] LABS: ALANINE AMINOTRANSFERASE 17 U/L (12-78); ALBUMIN/GLOBULIN RATIO 0.3 (1.1-1.5); ALKALINE PHOSPHATASE 61 IU/L (46-116); ANION GAP 5 (8-16); ASPARTATE AMINO TRANSFERASE 33 U/L (10-37); BILIRUBIN,TOTAL 0.3 MG/DL (0.1-1.0); BLOOD UREA NITROGEN 34 MG/DL (7-18); BUN/CREATININE RATIO 42.5 (5.4-32.0); CALCIUM 6.9 MG/DL (8.5-10.1); CHLORIDE 115 MMOL/L (99-107); GLUCOSE 105 MG/DL (70-104); MAGNESIUM 1.7 MG/DL (1.5-2.4); PHOSPHORUS 3.6 MG/DL (2.3-4.5); POTASSIUM 4.1 MMOL/L (3.5-5.1); SODIUM 145 MMOL/L (135-145); TOTAL CARBON DIOXIDE 24.8 MMOL/L (24-32); eGFR > 90 ML/MIN
[2019-07-31 03:05] LABS: ABG BASE EXCESS 1.1 mmol/L (-2.0-3.0); ABG HCO3 22.5 mmol/L (22.0-26.0); ABG OXYGEN SATURATION 96.7 % (95-98); ABG PCO2 (T) 27.6 mmHg (35.0-45.0); ABG PH (T) 7.534 (7.350-7.450); ABG PO2 (T) 97.2 mmHg (83-108); ALLEN'S TEST Positive; FCOHb 0.2 % (0.5-1.5); FO2Hb 96.5 % (94-100); MINUTE VOLUME 14 L/min; PATIENT TEMPERATURE 38.7; PEEP 10 cm H2O; RESPIRATORY RATE 10 b/min; RESPIRATORY RATE (OBSERVED) 23 b/min; TIDAL VOLUME 532 mL; TOTAL HEMOGLOBIN 10.2 G/dl (14.0-17.9)
[2019-07-31] MEDS: acetaminophen 325mg tablet NG PRN ×3 (03:09→21:10)
[2019-07-31] MEDS: piperacillin/tazo 4.5gm/100ml 100 ML IV SCH ×3 (04:04→20:47)
--- NOTE | 2019-07-31 06:26 | NUR ---
SBAR to Wali RN no questions or concerns after day shift assumed care for bed # 2011
[2019-07-31] MEDS: famotidine/PF 10 mg/ml inj IV SCH ×2 (07:53→20:50)
[2019-07-31] MEDS: docusate sodium 100mg/10ml UD cup NG SCH ×2 (07:53→20:00)
[2019-07-31] MEDS: heparin, porcine 5000 units/ml vial SQ SCH ×2 (07:53→20:47)
[2019-07-31] MEDS: lactobacillus rhamnosus 10,000 MMU CELLS/CAPSULE NG SCH ×2 (07:53→20:47)
[2019-07-31] MEDS: diatr meglu/diatrizoate 30ml oral sol.-(3 dose) bottle PO SCH ×5 (11:00→17:22)
[2019-07-31] MEDS ORDERED: Dextrose 10%-water IV solution 1,000 ML IV PRN (11:05)
[2019-07-31] MEDS: midazolam 100mg in NS 100ml 100 ML IV PRN (11:46)
[2019-07-31] MEDS: NORepinephrine 8mg/ 250ml NS 250 ML IV SCH (12:00)
--- NOTE | 2019-07-31 12:09 | NUR ---
reassessment: Pt tolerating TF at goal; Glucerna substitute for Vital AF while out of stock; to restart w/ Vital AF today. Rectal tube in place 450ml output 07/30 none documented yet today. On ARDS protocol multiple infiltrates to lungs and currently being iced receiving tylenol for fever per RN; not on hyperthermia protocol. Prior EF 50% w/ new echo pending per MD. Will continue to monitor for TF tolerance. Recommend: 1. Recommend continuous tube feedings using Vital AF at 70 ml/hr will provide 1680 ml, 2016 cals, 126 g protein, and 1361 ml water. 2. Prealbumin q Monday and ; daily wts 3. water flush 200 q 4 4. Upon extubation; advance diet per MD to heart healthy Addendum: 07/31/19 at [address] Amended: Links added.
--- NOTE | 2019-07-31 13:40 | NUR ---
0930- Dr Villegas and Dr Sharpe here, plan is to repeat CT of CAP with oral and IV contrast. Repeat echo ordered. Plan is for MD to review CT results and family meeting. 1100- Stopped tube feed started D10 in anticipation of CT, dosed with gastroview. 1130- Patient layed flat for cleaning and repositioning. Desat to the 70's repeatedly tried to position for better ventilation and RT at bedside. After patient repositioned with HOB up, respirations 44 min, substernal retractions, sats down to 74% , RT bagged to ventilate and reoxygenate, difficult to bag, poor ventilation to right lung. RT increased inspiratory pressure to 26 from 10, FIO2 to 50% from 40%, and peep to 10 from 8. MD notified of changes and inability to safely go to CT. 1340- Spoke with Serenity (daughter) re: not able to go to CT, they could come back anytime. Will address care plan when they arrive.
--- NOTE | 2019-07-31 14:13 | NUR ---
[facility] attempted multiple times to see pt today, first pt had several family members in room and they were recieving a talk about the criticalness of pt's condition. On second attempt, pt was unable to be turned do to sudden respiratory distress when pt's head was laid flat earlier, and pt apparently had to be bagged and desatted down to 70s. Will attempt to follow up with pt at later time.
--- NOTE | 2019-07-31 14:48 | NUR ---
1430- Family back in room, MD contacted, daughter spoke with MD, family concurs patient to be DNR. Order confirmed by Amber Ferguson and myself, DNR band applied to patient.
--- NOTE | 2019-07-31 14:59 | NUR ---
1445- RT in room at bedside, heard audible change in patient breathing, Patient resp rate down to 26, breath sounds clear throughout, no retractions, RT decreased insp pressure from 26 to 20.
[2019-07-31] MEDS ORDERED: CISatracurium **Bolus** 2 mg/ml inj IV PRN (16:50)
[2019-07-31] MEDS ORDERED: iohexol 300mg/ml 100ml inj. ONE (16:57)
--- NOTE | 2019-07-31 18:22 | NUR ---
[id number]- Pt to CT scan, uneventful, nimbex not needed, maintained saturation, back to room. Reported off to Jose.
--- NOTE | 2019-07-31 18:42 | NUR ---
assumed care from Wali SNOW no questions or concerns after assuming care
[2019-07-31] MEDS: sennosides/docusate sodium tablet NG SCH (20:44)
--- NOTE | 2019-07-31 21:00 | NUR ---
patients daughter called to check on the patient, patient has no changes daughter will call during rounds tomorrow 08/01/19
--- NOTE | 2019-07-31 23:00 | NUR ---
patient in bed eyes closed restraints have been released for complete shift
[2019-08-01] VITALS (24 sets, daily range): BP systolic 82–108; BP diastolic 49–79
--- NOTE | 2019-08-01 01:33 | NUR ---
patient in bed no purposeful movement observed this shift rr even un labored no s/s of acute stress at this time
[2019-08-01] MEDS: mineral oil/petrolatum ophthal oint EACHEYE SCH ×4 (02:36→20:34)
[2019-08-01] MEDS: ipratropium/albuterol 3ml nebule NEB SCH ×6 (02:53→23:13)
[2019-08-01 03:10] LABS: ABG BASE EXCESS -2.9 mmol/L (-2.0-3.0); ABG OXYGEN SATURATION 95.1 % (95-98); ABG PCO2 (T) 25.1 mmHg (35.0-45.0); ABG PO2 (T) 79.7 mmHg (83-108); ALLEN'S TEST Positive; FCOHb 0.2 % (0.5-1.5); FO2Hb 94.9 % (94-100); MINUTE VOLUME 11 L/min; PATIENT TEMPERATURE 37.8; PEEP 8 cm H2O; RESPIRATORY RATE 10 b/min; RESPIRATORY RATE (OBSERVED) 21 b/min; TOTAL HEMOGLOBIN 9.8 G/dl (14.0-17.9)
[2019-08-01] MEDS: piperacillin/tazo 4.5gm/100ml 100 ML IV SCH ×3 (04:51→20:34)
[2019-08-01 04:53] LABS: BASOPHILS # (AUTO) 0.1 X10'3 (0-0.2); BASOPHILS % (AUTO) 0.4 % (0-1); EOSINOPHILS # (AUTO) 0.1 X10'3 (0-0.9); HEMATOCRIT 26.3 % (42.0-52.0); HEMOGLOBIN 8.6 g/dl (14.0-17.9); LYMPHOCYTES # (AUTO) 1.4 X10'3 (1.1-4.8); LYMPHOCYTES % (AUTO) 9.8 % (21-51); MEAN CORPUSCULAR HEMOGLOBIN 30.5 PG (27.0-31.0); MEAN CORPUSCULAR HGB CONC 32.7 g/dL (33.0-36.5); MEAN CORPUSCULAR VOLUME 93.3 FL (78-98); MEAN PLATELET VOLUME 9.2 FL (7.4-10.4); MONOCYTES # (AUTO) 0.6 X10'3 (0-0.9); MONOCYTES % (AUTO) 4.4 % (2-12); NEUTROPHILS # (AUTO) 12.1 X10'3 (1.8-7.7); NEUTROPHILS % (AUTO) 84.4 % (42-75); PLATELET COUNT 186 X10'3 (140-440); RED BLOOD COUNT 2.82 X10'6 (4.70-6.10); RED CELL DISTRIBUTION WIDTH 13.7 % (11.5-14.5); WHITE BLOOD COUNT 14.4 X10'3 (4.5-11.0)
[2019-08-01] MEDS: acetaminophen 325mg tablet NG PRN ×2 (05:11→13:48)
[2019-08-01 05:13] LABS: ALANINE AMINOTRANSFERASE 30 U/L (12-78); ALBUMIN/GLOBULIN RATIO 0.2 (1.1-1.5); ALKALINE PHOSPHATASE 74 IU/L (46-116); ANION GAP 8 (8-16); ASPARTATE AMINO TRANSFERASE 67 U/L (10-37); BILIRUBIN,TOTAL 0.2 MG/DL (0.1-1.0); BLOOD UREA NITROGEN 33 MG/DL (7-18); BUN/CREATININE RATIO 39.3 (5.4-32.0); CALCIUM 7.2 MG/DL (8.5-10.1); CHLORIDE 112 MMOL/L (99-107); CREATININE 0.84 MG/DL (0.60-1.10); GLUCOSE 98 MG/DL (70-104); MAGNESIUM 1.8 MG/DL (1.5-2.4); PHOSPHORUS 4.2 MG/DL (2.3-4.5); SODIUM 144 MMOL/L (135-145); TOTAL CARBON DIOXIDE 24.5 MMOL/L (24-32); TOTAL PROTEIN 5.3 G/DL (6.4-8.2); eGFR > 90 ML/MIN
--- NOTE | 2019-08-01 05:41 | NUR ---
patient has not made any observable purposeful movements on NOC shift today, patient has not been in restraints > 12 hrs
--- NOTE | 2019-08-01 06:32 | NUR ---
sbar to rachel chapman no questions or concerns after assuming care
[2019-08-01] MEDS: docusate sodium 100mg/10ml UD cup NG SCH ×2 (08:00→20:33)
[2019-08-01] MEDS: midazolam 100mg in NS 100ml 100 ML IV PRN ×2 (08:37→23:19)
[2019-08-01] MEDS: famotidine/PF 10 mg/ml inj IV SCH ×2 (09:44→20:33)
[2019-08-01] MEDS: lactobacillus rhamnosus 10,000 MMU CELLS/CAPSULE NG SCH ×2 (09:45→20:33)
[2019-08-01] MEDS: heparin, porcine 5000 units/ml vial SQ SCH ×2 (09:45→20:33)
--- NOTE | 2019-08-01 11:28 | NUR ---
reassessment: Pt TF at goal and tolerating; Vital AF back in stock and to receive for nutrition needs. Rectal tube 50ml output improving. Pericardial window drain purulent and high output per RN. Overall prognosis poor per MD at rounds. Will continue to monitor. Recommend: 1. Recommend continuous tube feedings using Vital AF at 70 ml/hr will provide 1680 ml, 2016 cals, 126 g protein, and 1361 ml water. 2. Prealbumin q Monday and ; daily wts 3. water flush 200 q 4 4. Upon extubation; advance diet per MD to heart healthy Addendum: 08/01/19 at [address] Amended: Links added.
[2019-08-01] MEDS ORDERED: furosemide inj 100 ML IV SCH (11:40)
[2019-08-01] MEDS ORDERED: MIDAZolam 5mg/ml 2ml vial IV ONE (12:00)
[2019-08-01] MEDS: methylPREDNISolone sod succ 125mg/2ml vial IV SCH ×2 (13:48→20:33)
[2019-08-01] MEDS: furosemide inj 100 MG in normal saline 100ml IV soln 90 ML IV SCH (14:45)
--- NOTE | 2019-08-01 15:23 | NUR ---
WOC attempted again to see pt in regards to identified DTI on sacrum but per pt's nurse, pt is still unstable and unable to be turned at this time due to desaturation. Will continue to attempt turns.
--- NOTE | 2019-08-01 15:58 | NUR ---
No urine output for over 2 hours. Bladder scan showed 375ml. notified. Charge nurse will help irrigate Addendum: 08/01/19 at 1714 by Cristobal Garcia RN Valiente obstructed. Valiente exchange with new one following policy and procedures. No difficulties with procedure.
--- NOTE | 2019-08-01 18:30 | NUR ---
Patient in room CICU 2010. I have received report from GWENDOLYN Jain and had the opportunity to ask questions and assume patient care.
[2019-08-01] MEDS: FENTANYL-0.9 % NACL/PF 100 ML IV PRN (19:05)
[2019-08-01] MEDS: sennosides/docusate sodium tablet NG SCH (20:33)
[2019-08-02] VITALS (26 sets, daily range): BP systolic 78–109; BP diastolic 39–71
[2019-08-02] MEDS: methylPREDNISolone sod succ 125mg/2ml vial IV SCH ×2 (01:53→08:06)
[2019-08-02] MEDS: furosemide inj 100 MG in normal saline 100ml IV soln 90 ML IV SCH ×3 (01:54→20:05)
[2019-08-02] MEDS: mineral oil/petrolatum ophthal oint EACHEYE SCH ×4 (01:56→19:38)
[2019-08-02 02:54] LABS: BASOPHILS % (AUTO) 0.1 % (0-1); EOSINOPHILS % (AUTO) 0 % (0-6); HEMATOCRIT 29.1 % (42.0-52.0); HEMOGLOBIN 9.5 g/dl (14.0-17.9); LYMPHOCYTES # (AUTO) 0.5 X10'3 (1.1-4.8); LYMPHOCYTES % (AUTO) 4.3 % (21-51); MEAN CORPUSCULAR HEMOGLOBIN 30.5 PG (27.0-31.0); MEAN CORPUSCULAR HGB CONC 32.7 g/dL (33.0-36.5); MEAN CORPUSCULAR VOLUME 93.5 FL (78-98); MEAN PLATELET VOLUME 9.3 FL (7.4-10.4); MONOCYTES # (AUTO) 0.2 X10'3 (0-0.9); MONOCYTES % (AUTO) 1.3 % (2-12); NEUTROPHILS # (AUTO) 12.1 X10'3 (1.8-7.7); NEUTROPHILS % (AUTO) 94.3 % (42-75); PLATELET COUNT 253 X10'3 (140-440); RED BLOOD COUNT 3.12 X10'6 (4.70-6.10); RED CELL DISTRIBUTION WIDTH 13.4 % (11.5-14.5); WHITE BLOOD COUNT 12.8 X10'3 (4.5-11.0)
[2019-08-02 03:17] LABS: ALANINE AMINOTRANSFERASE 43 U/L (12-78); ALBUMIN 1.3 G/DL (3.4-5.0); ALBUMIN/GLOBULIN RATIO 0.3 (1.1-1.5); ALKALINE PHOSPHATASE 84 IU/L (46-116); ANION GAP 8 (8-16); ASPARTATE AMINO TRANSFERASE 74 U/L (10-37); BILIRUBIN,TOTAL 0.3 MG/DL (0.1-1.0); BLOOD UREA NITROGEN 41 MG/DL (7-18); BUN/CREATININE RATIO 39.8 (5.4-32.0); CALCIUM 7.7 MG/DL (8.5-10.1); CHLORIDE 108 MMOL/L (99-107); CREATININE 1.03 MG/DL (0.60-1.10); GLUCOSE 156 MG/DL (70-104); MAGNESIUM 2.2 MG/DL (1.5-2.4); PHOSPHORUS 5.1 MG/DL (2.3-4.5); POTASSIUM 4.3 MMOL/L (3.5-5.1); SODIUM 142 MMOL/L (135-145); TOTAL CARBON DIOXIDE 25.7 MMOL/L (24-32); TOTAL PROTEIN 6.3 G/DL (6.4-8.2); eGFR 82 ML/MIN
[2019-08-02] MEDS: ipratropium/albuterol 3ml nebule NEB SCH ×6 (03:30→23:10)
[2019-08-02] MEDS: piperacillin/tazo 4.5gm/100ml 100 ML IV SCH ×3 (04:19→19:36)
[2019-08-02 04:21] LABS: ABG BASE EXCESS -0.2 mmol/L (-2.0-3.0); ABG HCO3 21.6 mmol/L (22.0-26.0); ABG OXYGEN SATURATION 98.6 % (95-98); ABG PCO2 (T) 26.5 mmHg (35.0-45.0); ABG PH (T) 7.529 (7.350-7.450); ABG PO2 (T) 140.2 mmHg (83-108); ALLEN'S TEST Positive; FCOHb 0.3 % (0.5-1.5); FMetHb 0.1 % (0.3-1.12); FO2Hb 98.2 % (94-100); MINUTE VOLUME 18 L/min; PATIENT TEMPERATURE 37.3; PEEP 8 cm H2O; RESPIRATORY RATE (OBSERVED) 41 b/min; TOTAL HEMOGLOBIN 10.4 G/dl (14.0-17.9)
--- NOTE | 2019-08-02 06:14 | NUR ---
Problems reprioritized. Patient report given, questions answered & plan of care reviewed with GWENDOLYN Cadet.
[2019-08-02] MEDS: famotidine/PF 10 mg/ml inj IV SCH ×2 (08:06→19:33)
[2019-08-02] MEDS: docusate sodium 100mg/10ml UD cup NG SCH ×2 (08:07→19:35)
[2019-08-02] MEDS: heparin, porcine 5000 units/ml vial SQ SCH ×2 (08:07→19:40)
[2019-08-02] MEDS: lactobacillus rhamnosus 10,000 MMU CELLS/CAPSULE NG SCH ×2 (08:07→19:39)
[2019-08-02 08:20] LABS: ALBUMIN 1.2 G/DL (3.4-5.0); ANION GAP 9 (8-16); BLOOD UREA NITROGEN 43 MG/DL (7-18); BUN/CREATININE RATIO 39.1 (5.4-32.0); CALCIUM 7.4 MG/DL (8.5-10.1); CHLORIDE 110 MMOL/L (99-107); GLUCOSE 157 MG/DL (70-104); SODIUM 143 MMOL/L (135-145); TOTAL CARBON DIOXIDE 24.2 MMOL/L (24-32); eGFR 76 ML/MIN
--- NOTE | 2019-08-02 12:20 | NUR ---
Patients blood pressure 80's over [address] Sharpe, stated that i have cycled blood pressure with an even lower pressure, he stated to start levophed and titrate to to keep map above 60. No other new orders at this time
[2019-08-02] MEDS: NORepinephrine 8mg/ 250ml NS 250 ML IV SCH (12:34)
--- NOTE | 2019-08-02 14:06 | NUR ---
[facility] attempted to see pt today regarding DTI formation, primary nurse wary about turning completely on side, as pt had some issues with desaturating. Will continue to monitor. Apparently pt's daughter is meeting with family on Monday to discuss posibility to comfort care.
[2019-08-02 14:08] LABS: ALBUMIN 1.3 G/DL (3.4-5.0); ANION GAP 10 (8-16); BLOOD UREA NITROGEN 47 MG/DL (7-18); BUN/CREATININE RATIO 41.6 (5.4-32.0); CALCIUM 7.5 MG/DL (8.5-10.1); CHLORIDE 108 MMOL/L (99-107); CREATININE 1.13 MG/DL (0.60-1.10); GLUCOSE 204 MG/DL (70-104); POTASSIUM 3.9 MMOL/L (3.5-5.1); SODIUM 142 MMOL/L (135-145); TOTAL CARBON DIOXIDE 24.2 MMOL/L (24-32); eGFR 73 ML/MIN
[2019-08-02] MEDS ORDERED: methylPREDNISolone sod succ 125mg/2ml vial IV SCH ×2 (16:00→20:00)
[2019-08-02] MEDS: midazolam 100mg in NS 100ml 100 ML IV PRN (17:32)
--- NOTE | 2019-08-02 18:23 | NUR ---
Patient in room CICU 2010. I have received report from and had the opportunity to ask questions and assume patient care.
--- NOTE | 2019-08-02 18:23 | NUR ---
Problems reprioritized. Patient report given, questions answered & plan of care reviewed with Brigette SNOW.
[2019-08-02] MEDS: methylPREDNISolone sod succ/PF 40mg inj. IV SCH (19:34)
[2019-08-02 20:25] LABS: ALBUMIN 1.4 G/DL (3.4-5.0); ANION GAP 9 (8-16); BLOOD UREA NITROGEN 49 MG/DL (7-18); BUN/CREATININE RATIO 38.3 (5.4-32.0); CALCIUM 7.6 MG/DL (8.5-10.1); CHLORIDE 110 MMOL/L (99-107); CREATININE 1.28 MG/DL (0.60-1.10); GLUCOSE 171 MG/DL (70-104); POTASSIUM 3.4 MMOL/L (3.5-5.1); SODIUM 144 MMOL/L (135-145); TOTAL CARBON DIOXIDE 25.1 MMOL/L (24-32); eGFR 64 ML/MIN
[2019-08-02] MEDS ORDERED: MESSAGE TO PHARMACY PO ONE (20:25)
[2019-08-02] MEDS ORDERED: dextrose ORAL solution 15 GM/59 ML bottle PO PRN ×2 (20:25)
[2019-08-02] MEDS ORDERED: glucagon, human recombinant 1mg kit SUBCUT PRN (20:25)
[2019-08-02] MEDS ORDERED: dextrose 50%-water 50ml dispensing syringe IV PRN ×2 (20:25)
[2019-08-02] MEDS: insulin regular, human vial - multi-dose SQ SCH (21:14)
[2019-08-02] MEDS: insulin glargine (Lantus) pen - multi-dose SQ SCH (21:18)
[2019-08-02] MEDS: sennosides/docusate sodium tablet NG SCH (21:20)
[2019-08-02] MEDS: potassium CL 10mEq/100ml bag 100 ML IV PRN ×2 (21:32→22:40)
[2019-08-02] MEDS: potassium Cl 20mEq/100mL bag 100 ML IV PRN (23:59)
[2019-08-03] VITALS (33 sets, daily range): BP systolic 81–108; BP diastolic 42–74
[2019-08-03] MEDS: furosemide inj 100 MG in normal saline 100ml IV soln 90 ML IV SCH ×3 (00:30→22:31)
[2019-08-03] MEDS: mineral oil/petrolatum ophthal oint EACHEYE SCH ×4 (02:00→20:09)
[2019-08-03] MEDS: insulin regular, human vial - multi-dose SQ SCH ×4 (02:59→20:17)
[2019-08-03] MEDS: ipratropium/albuterol 3ml nebule NEB SCH ×6 (03:12→23:14)
[2019-08-03 03:25] LABS: BASOPHILS % (AUTO) 0.2 % (0-1); EOSINOPHILS % (AUTO) 0 % (0-6); HEMATOCRIT 26.7 % (42.0-52.0); HEMOGLOBIN 8.8 g/dl (14.0-17.9); LYMPHOCYTES # (AUTO) 0.6 X10'3 (1.1-4.8); LYMPHOCYTES % (AUTO) 6.7 % (21-51); MEAN CORPUSCULAR HEMOGLOBIN 30.8 PG (27.0-31.0); MEAN CORPUSCULAR VOLUME 93.5 FL (78-98); MEAN PLATELET VOLUME 8.9 FL (7.4-10.4); MONOCYTES # (AUTO) 0.5 X10'3 (0-0.9); MONOCYTES % (AUTO) 5.1 % (2-12); NEUTROPHILS # (AUTO) 7.8 X10'3 (1.8-7.7); PLATELET COUNT 276 X10'3 (140-440); RED BLOOD COUNT 2.86 X10'6 (4.70-6.10); WHITE BLOOD COUNT 8.9 X10'3 (4.5-11.0)
[2019-08-03 03:40] LABS: ABG BASE EXCESS -0.5 mmol/L (-2.0-3.0); ABG HCO3 21.5 mmol/L (22.0-26.0); ABG OXYGEN SATURATION 98.4 % (95-98); ABG PCO2 (T) 26.1 mmHg (35.0-45.0); ABG PH (T) 7.532 (7.350-7.450); ABG PO2 (T) 145.7 mmHg (83-108); ALLEN'S TEST Positive; FCOHb 0.1 % (0.5-1.5); FMetHb 0.1 % (0.3-1.12); FO2Hb 98.2 % (94-100); MINUTE VOLUME 16 L/min; PATIENT TEMPERATURE 36.6; PEEP 8 cm H2O; RESPIRATORY RATE 10 b/min; RESPIRATORY RATE (OBSERVED) 30 b/min; TOTAL HEMOGLOBIN 9.8 G/dl (14.0-17.9)
[2019-08-03] MEDS: piperacillin/tazo 4.5gm/100ml 100 ML IV SCH ×3 (04:00→20:05)
[2019-08-03 04:02] LABS: ALANINE AMINOTRANSFERASE 40 U/L (12-78); ALBUMIN 1.3 G/DL (3.4-5.0); ALBUMIN/GLOBULIN RATIO 0.3 (1.1-1.5); ALKALINE PHOSPHATASE 76 IU/L (46-116); ANION GAP 9 (8-16); ASPARTATE AMINO TRANSFERASE 45 U/L (10-37); BILIRUBIN,TOTAL 0.2 MG/DL (0.1-1.0); BLOOD UREA NITROGEN 50 MG/DL (7-18); BUN/CREATININE RATIO 41.3 (5.4-32.0); CALCIUM 7.7 MG/DL (8.5-10.1); CHLORIDE 110 MMOL/L (99-107); CREATININE 1.21 MG/DL (0.60-1.10); GLUCOSE 164 MG/DL (70-104); MAGNESIUM 2.3 MG/DL (1.5-2.4); POTASSIUM 3.4 MMOL/L (3.5-5.1); SODIUM 144 MMOL/L (135-145); TOTAL CARBON DIOXIDE 24.9 MMOL/L (24-32); TOTAL PROTEIN 5.9 G/DL (6.4-8.2); eGFR 68 ML/MIN
[2019-08-03] MEDS: potassium Cl 20mEq/100mL bag 100 ML IV PRN ×2 (05:35→06:35)
--- NOTE | 2019-08-03 05:50 | NUR ---
Pt remains orally intubated FIO2 30%. On fentanyl & versed drips. Minimal response when orally suctioned, gag reflex is present, eyebrows furrow when orally suctioned. Minimal gross movement noted to left arm. Remains in sinus tachycardia HR 104-113 throughout the night. CVP reads 11-14. Remains on lasix drip at 10mg/hr. K+ replaced according to protocol with K rider currently infusing for K+3.4.Mediastinal chest tube have drained serous fluid 280ml for the night monitor. Tolerating enteric feedings of Glucerna at goal rate 70ml/hr.With free water flushes 200ml Q4H. Rectal tube with 200ml loose stool. WBC's trending down 8.9 this morning. Awaiting family members to come in and decide on comfort care. Pts brother came in last night to visit.
--- NOTE | 2019-08-03 06:15 | NUR ---
Problems reprioritized. Patient report given, questions answered & plan of care reviewed with Chichi SNOW.
--- NOTE | 2019-08-03 06:30 | NUR ---
Patient in room CICU 2010. I have received report from Brigette Aldana and had the opportunity to ask questions and assume patient care. Patient laying in bed with eyes closed, castro to gravity, fentanyl, versed, lasix, and TKO NS infusing to L PICC, patient on ventilator fio2 30% peep 8 sating 98%. vital signs stable will continue to monitor
[2019-08-03] MEDS: famotidine/PF 10 mg/ml inj IV SCH ×2 (08:18→20:06)
[2019-08-03] MEDS: methylPREDNISolone sod succ/PF 40mg inj. IV SCH ×2 (08:19→20:05)
[2019-08-03] MEDS: heparin, porcine 5000 units/ml vial SQ SCH ×2 (08:19→20:08)
[2019-08-03] MEDS: docusate sodium 100mg/10ml UD cup NG SCH ×2 (08:19→20:00)
[2019-08-03] MEDS: lactobacillus rhamnosus 10,000 MMU CELLS/CAPSULE NG SCH ×2 (08:19→20:05)
[2019-08-03] MEDS: midazolam 100mg in NS 100ml 100 ML IV PRN (11:50)
[2019-08-03] MEDS: FENTANYL-0.9 % NACL/PF 100 ML IV PRN (11:50)
[2019-08-03 15:39] LABS: ALBUMIN 1.3 G/DL (3.4-5.0); ANION GAP 7 (8-16); BLOOD UREA NITROGEN 56 MG/DL (7-18); BUN/CREATININE RATIO 49.1 (5.4-32.0); CALCIUM 7.9 MG/DL (8.5-10.1); CHLORIDE 111 MMOL/L (99-107); CREATININE 1.14 MG/DL (0.60-1.10); GLUCOSE 129 MG/DL (70-104); POTASSIUM 3.6 MMOL/L (3.5-5.1); SODIUM 144 MMOL/L (135-145); TOTAL CARBON DIOXIDE 25.8 MMOL/L (24-32); eGFR 73 ML/MIN
--- NOTE | 2019-08-03 17:45 | NUR ---
Patients BP labile and 2 episodes where MAP decreased below 60, Dr. Scherer notified, no new orders. All drains patent and functioning properly. No s/s of distress. Patient met diabetic protocol. Admitting requested to be notified when daughter is present to sign paperwork.
--- NOTE | 2019-08-03 18:21 | NUR ---
Problems reprioritized. Patient report given, questions answered & plan of care reviewed with GWENDOLYN Machuca.
--- NOTE | 2019-08-03 18:21 | NUR ---
Patient in room CICU 2010. I have received report from Chichi and had the opportunity to ask questions and assume patient care. Pt received orally intubated#8.0 ETT at 24cm teeth.ETT in place with anchorfast. Pt is on vent ACPC mode FIO2 30% rate of 10 +8 PEEP.Oxygen saturation is 97%. Rhythm is sinus tachycardia HR 104-107. PICC line to left upper arm is transduced CVP is 12-13 Pupils are equal @ 2mm & reactive to light. Eyes deviate upward. Gross movement noted to bilateral lower extremities and left arm with nail bed pressure, pt moves tongue around suction device when oral care is rendered.OGT taped is securely to ETT. Mediastinal chest tubes right/left drain to [facility], drainage is clear yellow. Chest tubes are sutured in place & dressing is clean & dry. Glucerna tube feeding at goal rate 70ml/hr.. PT is on fentanyl & versed drips. Lasix drip at 10mg/hr. Valiente catheter drains clear yellow urine. Rectal bag drains brown liquid stool. Pt is on a Hilario pulmonary bed. SCD hose on bilaterally to lower extremities. Safety precautions in place. Bed is locked/in low position, side rails are up x4. HOB is elevated 30 degrees. Awaiting family members for conference 08/04/19. Pt is DNR status.
--- NOTE | 2019-08-03 19:30 | NUR ---
Grandmother Liza Velasco called nurses station for an update on condition/status. Grandmother is concerned and mk not be able to make family conference scheduled for 08/04/19.
--- NOTE | 2019-08-03 20:15 | NUR ---
Anchorfast ETT molina changed out by RT. ETT is secure at 24cm teeth. OGT retaped to ETT.
[2019-08-03 20:18] LABS: ALBUMIN 1.4 G/DL (3.4-5.0); ANION GAP 8 (8-16); BLOOD UREA NITROGEN 54 MG/DL (7-18); BUN/CREATININE RATIO 46.2 (5.4-32.0); CALCIUM 7.5 MG/DL (8.5-10.1); CHLORIDE 111 MMOL/L (99-107); CREATININE 1.17 MG/DL (0.60-1.10); GLUCOSE 132 MG/DL (70-104); POTASSIUM 3.6 MMOL/L (3.5-5.1); SODIUM 144 MMOL/L (135-145); TOTAL CARBON DIOXIDE 24.8 MMOL/L (24-32); eGFR 71 ML/MIN
[2019-08-03] MEDS: insulin glargine (Lantus) pen - multi-dose SQ SCH (20:23)
[2019-08-03] MEDS: sennosides/docusate sodium tablet NG SCH (21:22)
[2019-08-04] VITALS (25 sets, daily range): BP systolic 77–114; BP diastolic 38–76
[2019-08-04] MEDS: midazolam 100mg in NS 100ml 100 ML IV PRN
[2019-08-04] MEDS: insulin regular, human vial - multi-dose SQ SCH ×2 (02:09→08:26)
[2019-08-04] MEDS: mineral oil/petrolatum ophthal oint EACHEYE SCH ×2 (02:10→07:31)
[2019-08-04 02:40] LABS: BASOPHILS % (AUTO) 0.1 % (0-1); EOSINOPHILS % (AUTO) 0 % (0-6); HEMATOCRIT 25.8 % (42.0-52.0); HEMOGLOBIN 8.6 g/dl (14.0-17.9); LYMPHOCYTES # (AUTO) 0.5 X10'3 (1.1-4.8); LYMPHOCYTES % (AUTO) 6.1 % (21-51); MEAN CORPUSCULAR HEMOGLOBIN 31.1 PG (27.0-31.0); MEAN CORPUSCULAR HGB CONC 33.4 g/dL (33.0-36.5); MEAN PLATELET VOLUME 8.1 FL (7.4-10.4); MONOCYTES # (AUTO) 0.4 X10'3 (0-0.9); MONOCYTES % (AUTO) 5.5 % (2-12); NEUTROPHILS # (AUTO) 7.1 X10'3 (1.8-7.7); NEUTROPHILS % (AUTO) 88.3 % (42-75); PLATELET COUNT 266 X10'3 (140-440); RED BLOOD COUNT 2.77 X10'6 (4.70-6.10); RED CELL DISTRIBUTION WIDTH 13.5 % (11.5-14.5)
[2019-08-04 02:44] LABS: ALANINE AMINOTRANSFERASE 39 U/L (12-78); ALBUMIN 1.4 G/DL (3.4-5.0); ALBUMIN/GLOBULIN RATIO 0.3 (1.1-1.5); ALKALINE PHOSPHATASE 65 IU/L (46-116); ANION GAP 6 (8-16); ASPARTATE AMINO TRANSFERASE 33 U/L (10-37); BILIRUBIN,TOTAL 0.2 MG/DL (0.1-1.0); BLOOD UREA NITROGEN 55 MG/DL (7-18); BUN/CREATININE RATIO 48.2 (5.4-32.0); CALCIUM 8.1 MG/DL (8.5-10.1); CHLORIDE 111 MMOL/L (99-107); CREATININE 1.14 MG/DL (0.60-1.10); GLUCOSE 123 MG/DL (70-104); MAGNESIUM 2.3 MG/DL (1.5-2.4); PHOSPHORUS 4.1 MG/DL (2.3-4.5); POTASSIUM 3.6 MMOL/L (3.5-5.1); SODIUM 144 MMOL/L (135-145); TOTAL PROTEIN 5.6 G/DL (6.4-8.2); eGFR 73 ML/MIN
--- NOTE | 2019-08-04 03:30 | NUR ---
CHG bath rendered. Rectal tube found out. Reinserted with lubricant. Linen & gown changed. Pt with gross movement to nail bed pressure bilateral lower extremities and right arm. Opens eyes spontaneously at times. Unable to follow commands/. Moves tongue around suction device when oral care is rendered. Gag reflex is present, cough is strong when back of throat is suctioned, secretions are thick clear/white. Addendum: 08/04/19 at 1946 by Brigette Barron RN arm movement in left arm not the right.
[2019-08-04] MEDS: ipratropium/albuterol 3ml nebule NEB SCH ×3 (03:49→11:24)
[2019-08-04 04:01] LABS: ABG BASE EXCESS 0.7 mmol/L (-2.0-3.0); ABG HCO3 22.6 mmol/L (22.0-26.0); ABG OXYGEN SATURATION 92.9 % (95-98); ABG PCO2 (T) 27.3 mmHg (35.0-45.0); ABG PH (T) 7.536 (7.350-7.450); ABG PO2 (T) 65.4 mmHg (83-108); ALLEN'S TEST Positive; FCOHb 0.2 % (0.5-1.5); FMetHb 0.2 % (0.3-1.12); FO2Hb 92.5 % (94-100); MINUTE VOLUME 16 L/min; PATIENT TEMPERATURE 36.8; PEEP 8 cm H2O; RESPIRATORY RATE 10 b/min; RESPIRATORY RATE (OBSERVED) 35 b/min; TOTAL HEMOGLOBIN 10.4 G/dl (14.0-17.9)
[2019-08-04] MEDS: piperacillin/tazo 4.5gm/100ml 100 ML IV SCH ×2 (04:07→12:57)
--- NOTE | 2019-08-04 06:29 | NUR ---
Problems reprioritized. Patient report given, questions answered & plan of care reviewed with Wali SNOW.
--- NOTE | 2019-08-04 06:32 | NUR ---
Patient in room CICU 2010. I have received report from Brigette and had the opportunity to ask questions and assume patient care.
--- NOTE | 2019-08-04 07:22 | NUR ---
0700- Patient having frequent episodes of tachypnea, ETCO2 drops to 19, rises to normal when breathing resumes normal rate. Feet turning decorticate randomly, pupils equal and reactive to light, -dolls eyes, no tracking noting. no purposeful movement.
[2019-08-04] MEDS: methylPREDNISolone sod succ/PF 40mg inj. IV SCH (07:30)
[2019-08-04] MEDS: lactobacillus rhamnosus 10,000 MMU CELLS/CAPSULE NG SCH (07:30)
[2019-08-04] MEDS: heparin, porcine 5000 units/ml vial SQ SCH (07:30)
[2019-08-04] MEDS: famotidine/PF 10 mg/ml inj IV SCH (07:30)
[2019-08-04] MEDS: docusate sodium 100mg/10ml UD cup NG SCH (07:33)
[2019-08-04] MEDS ORDERED: K and/or MAG REPLACEMENT MC SCH (08:00)
[2019-08-04 08:20] LABS: ALBUMIN 1.4 G/DL (3.4-5.0); ANION GAP 8 (8-16); BLOOD UREA NITROGEN 54 MG/DL (7-18); BUN/CREATININE RATIO 43.9 (5.4-32.0); CALCIUM 8.9 MG/DL (8.5-10.1); CHLORIDE 110 MMOL/L (99-107); CREATININE 1.23 MG/DL (0.60-1.10); GLUCOSE 131 MG/DL (70-104); POTASSIUM 3.5 MMOL/L (3.5-5.1); SODIUM 144 MMOL/L (135-145); TOTAL CARBON DIOXIDE 26.3 MMOL/L (24-32); eGFR 67 ML/MIN
[2019-08-04] MEDS: furosemide inj 100 MG in normal saline 100ml IV soln 90 ML IV SCH (08:48)
--- NOTE | 2019-08-04 10:30 | NUR ---
Donor Network Reference # [id number] Case started on patient with donor network 1000- BP 78/38, Dr Sharpe at bedside, dc'd lasix gtt, nursing decreased enmaed and fent. 1015-Plan is for family conference today to decide if family ready for comfort care status. Nrsg spoke with decision maker Serenity, they are in route, should be here around 11. Dr hSarpe to still be in house at that time, will notify so as to have conference then. 1030- BP 81/39 Dr Sharpe notified, not to start levophed at this moment
--- NOTE | 2019-08-04 11:13 | NUR ---
1045- Daughter Serenity here as well as 2 other family members. She spoke with Dr Sharpe and myself, other family coming. The discussion of comfort care was approached. After all family is here they will come to a consensus. at which point Dr Sharpe would like to be contacted via phone.
[2019-08-04] MEDS: NORepinephrine 8mg/ 250ml NS 250 ML IV SCH (12:00)
--- NOTE | 2019-08-04 12:09 | NUR ---
reassessment: Pt tolerating TF. 100ml stool output. Pending family meeting for potential comfort care today given grave prognosis per MD note. Will monitor for changes in code status. Recommend: 1. Recommend continuous tube feedings using Vital AF at 70 ml/hr will provide 1680 ml, 2016 cals, 126 g protein, and 1361 ml water. 2. Prealbumin q Monday and ; daily wts 3. water flush 200 q 4 4. monitor for changes in code status Addendum: 08/04/19 at [address] Amended: Links added.
--- NOTE | 2019-08-04 13:35 | NUR ---
1200 Donor Network ruled out patient as a potential donor. 1315- Discussed comfort care and process with entire family, Serenity and family concur patient should be on comfort care. [address] Sharpe. order received for comfort care.
[2019-08-04] MEDS ORDERED: morphine 10mg/ml inj. IV PRN (13:40)
[2019-08-04] MEDS: LORazepam 2 mg/ml vial IV PRN ×2 (13:52→23:06)
[2019-08-04] MEDS: morphine 10mg/ml inj. IV PRN ×5 (13:52→23:07)
--- NOTE | 2019-08-04 16:16 | NUR ---
1400- patient extubated. Saturations 77% on RA. family at bedside, vss. Temperature remains elevated. Continue to monitor for comfort.
--- NOTE | 2019-08-04 18:23 | NUR ---
Problems reprioritized. Patient report given, questions answered & plan of care reviewed with [Brigette].
--- NOTE | 2019-08-04 18:23 | NUR ---
Patient in room CICU 2010. I have received report from Jovon SNOW and had the opportunity to ask questions and assume patient care. Pt received unresponsive to deep stimuli. Eyes deviate upward. Pupils at 2 mm with sluggish reaction. On room air with oxygen saturation 73%. Rhythm is sinus tachycardia HR 114. BP 96/60 Pulses are palpable, capillary refill is delayed. RR 28/min.Bilateral mediastinal chest tubes drain to [facility]. Valiente cath drains yellow urine, rectal bag with brown drainage. Pt status is DNR comfort measures.
--- NOTE | 2019-08-04 19:20 | NUR ---
Patients brother in. Female visitor at bedside.
[2019-08-05 00:11] VITALS: BP 102/57
[2019-08-05 01:00] VITALS: BP 90/52
[2019-08-05] MEDS: morphine 10mg/ml inj. IV PRN (01:00)
--- NOTE | 2019-08-05 01:00 | NUR ---
Repositioned with pillows to right side.
--- NOTE | 2019-08-05 01:14 | NUR ---
Heart rate slowing down rate is 34, rhythm is agonal. No palpable pulses. Respirations have ceased.
[2019-08-05 01:15] VITALS: BP 0/0
--- NOTE | 2019-08-05 01:16 | NUR ---
Call placed to family member Jarvis tolbert regarding pending expiration. No answer. Message to call hospital left on cell phone.
[2019-08-05 01:18] VITALS: BP 0/0
--- NOTE | 2019-08-05 01:18 | NUR ---
Asystole. No BP No respirations. Patient .
--- NOTE | 2019-08-05 01:20 | NUR ---
Family member Julienne Velasco called regarding expiration. No answer. Message left to call the ICU.
--- NOTE | 2019-08-05 01:25 | NUR ---
Family member Liza Velasco grandmother called and contacted @ . Grandmother is aware of expiration & time pronounced.
--- NOTE | 2019-08-05 01:35 | NUR ---
[facility] contacted as requested by family regarding expiration.
--- NOTE | 2019-08-05 01:52 | NUR ---
RN IS TO DOCUMENT YES TO ALL APPLICABLE AREAS Pronouncement of :Yes 1. Time Physician Notified:129 2. Date of :08/05/19 3. Time of : 117 4. DNR/Withdraw life support documented:Yes 5. Monitor strip has been placed on chart:Yes 6. Assessment process is of one-minute duration and includes following criteria: a) Patient is unresponsive to all stimuli: Yes b) Pupils fixed and non-reactive:Yes c) Auscultation of precordium reveals absence of heart tones:Yes d) Auscultation of lungs reveals absence of breath sounds:Yes e) Absence of blood pressure / all vital signs:Yes f) QRS complexes are not present on monitor / EKG strip: Yes Asystole g) Pacer spikes without capture:N/A 4. Comments:Remains going to [facility], [address] [facility].[phone]
--- NOTE | 2019-08-05 02:00 | NUR ---
Post -mortem care rendered. Awaiting release of body.
--- NOTE | 2019-08-05 02:29 | NUR ---
Body released to Roscoe Cabrera from [facility].
== END 2019-08-05 01:18 | disposition expired | DRG 720 ==
LOC: CICU 2S 12:10
PROVIDERS: ADMIT Internal Medicine Critical Care Medicine; ATTEND Internal Medicine Critical Care Medicine
PROC: 0BH17EZ Insertion of Endotracheal Airway into Trachea, Via Natural or Artificial Opening (ICD-10-PCS; principal; 2019-07-25)
PROC: 5A1955Z Respiratory Ventilation, Greater than 96 Consecutive Hours (ICD-10-PCS; 2019-07-25)
PROC: 02HV33Z Insertion of Infusion Device into Superior Vena Cava, Percutaneous Approach (ICD-10-PCS; 2019-07-30)
PROC: 4A02X4A Measurement of Cardiac Electrical Activity, Guidance, External Approach (ICD-10-PCS; 2019-07-30)
PROC: B548ZZA Ultrasonography of Superior Vena Cava, Guidance (ICD-10-PCS; 2019-07-30)
PROC: BW251ZZ Computerized Tomography (CT Scan) of Chest, Abdomen and Pelvis using Low Osmolar Contrast (ICD-10-PCS; 2019-07-31)
DX: A41.01 Sepsis due to Methicillin susceptible Staphylococcus aureus (principal); I31.4 Cardiac tamponade; J96.00 Acute respiratory failure, unspecified whether with hypoxia or hypercapnia; I63.419 Cerebral infarction due to embolism of unspecified middle cerebral artery; I33.0 Acute and subacute infective endocarditis; I76 Septic arterial embolism; J90 Pleural effusion, not elsewhere classified; J81.1 Chronic pulmonary edema; I30.1 Infective pericarditis; I31.3 Pericardial effusion (noninflammatory); D73.5 Infarction of spleen; F15.10 Other stimulant abuse, uncomplicated; G81.94 Hemiplegia, unspecified affecting left nondominant side; F31.9 Bipolar disorder, unspecified; R47.01 Aphasia; I34.0 Nonrheumatic mitral (valve) insufficiency; R65.21 Severe sepsis with septic shock; Z51.5 Encounter for palliative care; Z66 Do not resuscitate; J45.909 Unspecified asthma, uncomplicated; Z88.1 Allergy status to other antibiotic agents; Z86.73 Personal history of transient ischemic attack (TIA), and cerebral infarction without residual deficits; Z79.899 Other long term (current) drug therapy
CPT/HCPCS: 36415; 36569; 36600; 71045; 71260; 74177; 80048; 80053; 82803; 82948; 83735; 84100; 84134; 84484; 85018; 85025; 87040; 87070; 87077; 93005; 93306; 93308; 94002; 94003; 94640; 94760; 95816; G0378; J0131; J1644; J1815; J1940; J2060; J2250; J2270; J2543; J2920; J2930; J3010; J3480; J3490; Q9963; Q9967